=== PATIENT | female | born 1950 | race Caucasian/White ===

== ENCOUNTER 2018-10-11 10:00 | Emergency (ER) | payer BC ==
[2018-10-11 10:32] VITALS: TEMP 97.9
[2018-10-11] MEDS ORDERED: SODIUM CHLORIDE 0.9% 1,000 ML IV STA (11:01)
--- NOTE | 2018-10-11 11:25 | ED ---
General Adult HPI - General Chief complaint: Vaginal Bleeding Stated complaint: vaginal bleeding/dizziness Time Seen by Provider: 10/11/18 10:48 Source: patient, RN notes reviewed Mode of arrival: ambulatory Limitations: no limitations - History of Present Illness Initial comments: Patient is a 68-year-old female presenting to the emergency room with multiple complaints. Patient states that she has had some vaginal bleeding that started once again this morning. States she had an episode a few months ago. States it only lasted for a day. Patient does admit some cramping lower abdomen. States she woke up this morning with the bleeding. States it has slowed down. She states she is using a pad. Patient also admits that she's had a cough over the last 3 months. Denies any sputum production. Patient also admits to feeling lightheaded earlier today. She states she did take her insulin shot but did not eat anything. Patient omits that she also was constipated yesterday. Patient denies any other complaints at this time. Patient denies any recent fever, chills, shortness of breath, chest pain, back pain, numbness or tingling, dysuria or hematuria, headaches or visual changes, or any other complaints. - Related Data Allergies Allergy/AdvReac Type Severity Reaction Status Date / Time No Known Allergies Allergy Verified 10/11/18 10:32 Review of Systems ROS Statement: Those systems with pertinent positive or pertinent negative responses have been documented in the HPI. ROS Other: All systems not noted in ROS Statement are negative. Past Medical History Past Medical History: Diabetes Mellitus, Hypertension, Renal Disease, Thyroid Disorder History of Any Multi-Drug Resistant Organisms: MRSA Date of last positivie culture/infection: 2009 MDRO Source:: head Past Surgical History: Cholecystectomy, Tonsillectomy, Tubal Ligation Additional Past Surgical History / Comment(s): breast biopsy Past Psychological History: No Psychological Hx Reported Smoking Status: Never smoker Past Alcohol Use History: None Reported Past Drug Use History: None Reported General Exam - General Exam Comments Initial Comments: General: The patient is awake and alert, in no distress, and does not appear acutely ill. Eye: Pupils are equal, round and reactive to light. Extra-ocular movements are intact. No nystagmus. There is normal conjunctiva bilaterally. No signs of icterus. Ears, nose, mouth and throat: There are moist mucous membranes and no oral lesions. Neck: The neck is supple, there is no tenderness or JVD. Cardiovascular: There is a regular rate and rhythm. No murmur, rub or gallop is appreciated. Respiratory: Lungs are clear to auscultation, respirations are non-labored, breath sounds are equal. No wheezes, stridor, rales, or rhonchi. Gastrointestinal: Soft on palpation. Mild tenderness lower quadrants both left and right. No rebound, guarding or CVA tenderness. Musculoskeletal: Normal ROM, no tenderness. Sensation intact. Strength 5/5. Pulses equal bilaterally 2+. Neurological: A&O x 3. CN II-XII intact, There are no obvious motor or sensory deficits. Coordination appears grossly intact. Speech is normal. Skin: Skin is warm and dry and no rashes or lesions are noted. Psychiatric: Cooperative, appropriate mood & affect, normal judgment. Limitations: no limitations Course Vital Signs 10/11/18 10:27 Temperature 97.9 F Pulse Rate 86 Respiratory 18 Rate Blood Pressure 165/85 O2 Sat by Pulse 99 Oximetry EKG Findings - EKG Comments: EKG Findings:: EKG performed at 1150 two quarters normal sinus rhythm with a right bundle branch block at 75 bpm. VA interval 140. 138 QT/QTc is 454/506. No acute ST change. Medical Decision Making - Medical Decision Making Ultrasound shows marked heterogeneous thickening of the endometrial stripe seen better on the transabdominal investigation, differential includes hyperplasia, polyp or carcinoma. Patient's labs been reviewed hemoglobin stable. Patient's urinalysis does have tenderness or chills. Patient is symptomatic. Culture pending. Patient at this time is resting comfortably doing well. Patient will be discharged home she is advised following up with [facility] [facility] for the vaginal bleeding has all shown shows a thickened endometrium. Patient advised to return to the emergency room symptoms increase worsen. Advised follow family doctor over the next 2 days - Lab Data Result diagrams: 10/11/18 11:45 10/11/18 11:45 Lab Results 10/11/18 10/11/18 10/11/18 Range/Units 11:45 11:45 11:45 WBC 9.3 (3.8-10.6) k/uL RBC 5.43 H (3.80-5.40) m/uL Hgb 16.2 H (11.4-16.0) gm/dL Hct 47.9 H (34.0-46.0) % MCV 88.3 (80.0-100.0) fL MCH 29.8 (25.0-35.0) pg MCHC 33.8 (31.0-37.0) g/dL RDW 12.7 (11.5-15.5) % Plt Count 236 (150-450) k/uL Neutrophils % 69 % Lymphocytes % 21 % Monocytes % 7 % Eosinophils % 3 % Basophils % 0 % Neutrophils # 6.4 (1.3-7.7) k/uL Lymphocytes # 1.9 (1.0-4.8) k/uL Monocytes # 0.6 (0-1.0) k/uL Eosinophils # 0.3 (0-0.7) k/uL Basophils # 0.0 (0-0.2) k/uL PT 10.7 (9.0-12.0) sec INR 1.1 (<1.2) APTT 22.7 (22.0-30.0) sec Sodium 138 (137-145) mmol/L Potassium 4.3 (3.5-5.1) mmol/L Chloride 106 (98-107) mmol/L Carbon Dioxide 25 (22-30) mmol/L Anion Gap 7 mmol/L BUN 15 (7-17) mg/dL Creatinine 0.57 (0.52-1.04) mg/dL Est GFR (CKD-EPI)AfAm >90 (>60 ml/min/1.73 sqM) Est GFR (CKD-EPI)NonAf >90 (>60 ml/min/1.73 sqM) Glucose 185 H (74-99) mg/dL Calcium 9.5 (8.4-10.2) mg/dL Total Bilirubin 0.5 (0.2-1.3) mg/dL AST 30 (14-36) U/L ALT 41 (9-52) U/L Alkaline Phosphatase 63 (38-126) U/L Troponin I (0.000-0.034) ng/mL Total Protein 7.0 (6.3-8.2) g/dL Albumin 3.6 (3.5-5.0) g/dL Urine Color Urine Appearance (Clear) Urine pH (5.0-8.0) Ur Specific [place] (1.001-1.035) Urine Protein (Negative) Urine Glucose (UA) (Negative) Urine Ketones (Negative) Urine Blood (Negative) Urine Nitrite (Negative) Urine Bilirubin (Negative) Urine Urobilinogen (<2.0) mg/dL Ur Leukocyte Esterase (Negative) Urine RBC (0-5) /hpf Urine WBC (0-5) /hpf Ur Squamous Epith Cells (0-4) /hpf Urine Bacteria (None) /hpf Urine Mucus (None) /hpf 10/11/18 10/11/18 Range/Units 11:45 14:10 WBC (3.8-10.6) k/uL RBC (3.80-5.40) m/uL Hgb (11.4-16.0) gm/dL Hct (34.0-46.0) % MCV (80.0-100.0) fL MCH (25.0-35.0) pg MCHC (31.0-37.0) g/dL RDW (11.5-15.5) % Plt Count (150-450) k/uL Neutrophils % % Lymphocytes % % Monocytes % % Eosinophils % % Basophils % % Neutrophils # (1.3-7.7) k/uL Lymphocytes # (1.0-4.8) k/uL Monocytes # (0-1.0) k/uL Eosinophils # (0-0.7) k/uL Basophils # (0-0.2) k/uL PT (9.0-12.0) sec INR (<1.2) APTT (22.0-30.0) sec Sodium (137-145) mmol/L Potassium (3.5-5.1) mmol/L Chloride (98-107) mmol/L Carbon Dioxide (22-30) mmol/L Anion Gap mmol/L BUN (7-17) mg/dL Creatinine (0.52-1.04) mg/dL Est GFR (CKD-EPI)AfAm (>60 ml/min/1.73 sqM) Est GFR (CKD-EPI)NonAf (>60 ml/min/1.73 sqM) Glucose (74-99) mg/dL Calcium (8.4-10.2) mg/dL Total Bilirubin (0.2-1.3) mg/dL AST (14-36) U/L ALT (9-52) U/L Alkaline Phosphatase (38-126) U/L Troponin I <0.012 (0.000-0.034) ng/mL Total Protein (6.3-8.2) g/dL Albumin (3.5-5.0) g/dL Urine Color Yellow Urine Appearance Clear (Clear) Urine pH 6.5 (5.0-8.0) Ur Specific [place] 1.006 (1.001-1.035) Urine Protein 1+ H (Negative) Urine Glucose (UA) Negative (Negative) Urine Ketones Negative (Negative) Urine Blood Large H (Negative) Urine Nitrite Negative (Negative) Urine Bilirubin Negative (Negative) Urine Urobilinogen <2.0 (<2.0) mg/dL Ur Leukocyte Esterase Small H (Negative) Urine RBC 20 H (0-5) /hpf Urine WBC 10 H (0-5) /hpf Ur Squamous Epith Cells <1 (0-4) /hpf Urine Bacteria Rare H (None) /hpf Urine Mucus Rare H (None) /hpf Disposition Clinical Impression: Vaginal bleeding Disposition: HOME SELF-CARE Condition: Good Instructions: Dysfunctional Uterine Bleeding (ED) Additional Instructions: Please use medication as discussed. Please follow-up with [facility]/family doctor in the next 2 days. Please return to emergency room if the symptoms increase or worsen or for any other concerns. Is patient prescribed a controlled substance at d/c from ED?: No Referrals: Cesar Thomas DO [Primary Care Provider] - 1-2 days Time of Disposition: 15:04
[2018-10-11 12:01] LABS: Basophils % (A) 0 %; Eosinophils # (A) 0.3 k/uL (0-0.7); Eosinophils % (A) 3 %; HCT 47.9 % (34.0-46.0); HGB 16.2 gm/dL (11.4-16.0); Lymphocytes # (A) 1.9 k/uL (1.0-4.8); Lymphocytes % (A) 21 %; MCH 29.8 pg (25.0-35.0); MCHC 33.8 g/dL (31.0-37.0); MCV 88.3 fL (80.0-100.0); Mean Platelet Volume 8.3; Monocytes # (A) 0.6 k/uL (0-1.0); Monocytes % (A) 7 %; Neutrophils # (A) 6.4 k/uL (1.3-7.7); Neutrophils % (A) 69 %; Platelet Count 236 k/uL (150-450); RBC 5.43 m/uL (3.80-5.40); RDW 12.7 % (11.5-15.5); WBC 9.3 k/uL (3.8-10.6)
[2018-10-11 12:10] LABS: ALT 41 U/L (9-52); AST 30 U/L (14-36); Albumin 3.6 g/dL (3.5-5.0); Alkaline Phosphatase 63 U/L (38-126); Anion Gap 7 mmol/L; Blood Urea Nitrogen 15 mg/dL (7-17); Calcium 9.5 mg/dL (8.4-10.2); Carbon Dioxide 25 mmol/L (22-30); Chloride 106 mmol/L (98-107); Glucose 185 mg/dL (74-99); Potassium 4.3 mmol/L (3.5-5.1); Sodium 138 mmol/L (137-145); Total Bilirubin 0.5 mg/dL (0.2-1.3)
[2018-10-11 12:19] LABS: INR 1.1 (<1.2); Partial Thromboplastin Time 22.7 sec (22.0-30.0); Prothrombin Time 10.7 sec (9.0-12.0)
--- NOTE | 2018-10-11 13:05 | XR ---
EXAMINATION TYPE: XR chest 2V DATE OF EXAM: 10/11/2018 COMPARISON: Prior chest x-ray April 13, 2011 HISTORY: Cough per order. TECHNIQUE: Frontal and lateral views of the chest are obtained. FINDINGS: There is no focal air space opacity, pleural effusion, or pneumothorax seen. The cardiac silhouette size is within normal limits. Multilevel spurring in the lower thoracic spine is present. IMPRESSION: No acute cardiopulmonary process.
--- NOTE | 2018-10-11 13:52 | US ---
EXAMINATION TYPE: US pelvis complete transvag DATE OF EXAM: 10/11/2018 COMPARISON: NONE CLINICAL HISTORY: bleeding. Postmenopausal bleeding TECHNIQUE: . Transabdominal sonographic images of the pelvis were acquired. Transvaginal sonographi c images were medically necessary to better assess the following anatomy: Uterus and endometrium Date of LMP: Age 42 EXAM MEASUREMENTS: Uterus: 10.7 x 5.1 x 6.2 cm Endometrial Stripe: 2.4 cm Right Ovary: Not visualized Left Ovary: Not visualized 1. Uterus: Anteverted 2. Endometrium: Thickened and heterogeneous. 3. Right Ovary: Obscured by overlying bowel gas 4. Left Ovary: Obscured by overlying bowel gas 5. Bilateral Adnexa: wnl as visualized 6. Posterior cul-de-sac: wnl as visualized IMPRESSION: Marked heterogeneous thickening of the endometrial stripe seen better on transabdominal i nvestigation, differential includes hyperplasia and polyp but carcinoma needs to BE considered given patient's history. Further investigation with endometrial sampling is advised.
[2018-10-11 14:35] LABS: Appearance,Urine Clear (Clear); Bacteria,Urine Rare /hpf; Bilirubin,Urine Negative (Negative); Blood,Urine Large (Negative); Color,Urine Yellow; Glucose,Urine (UA) Negative (Negative); Ketones,Urine Negative (Negative); Leukocyte Esterase,Urine Small (Negative); Mucus,Urine Rare /hpf; Nitrite,Urine Negative (Negative); PH, Urine 6.5 (5.0-8.0); Protein,Urine 1+ (Negative); RBC,Urine 20 /hpf (0-5); Specific Gravity,Urine 1.006 (1.001-1.035); Squamous Epithelial Cell,Urine <1 /hpf (0-4); Urobilinogen,Urine <2.0 mg/dL (<2.0)
[2018-10-11 15:15] VITALS: BP 149/73; PULSE 68; RESP 19
== END 2018-10-11 16:02 | disposition home or self-care (01) ==
LOC: EC 10:00
DX: N93.9 Abnormal uterine and vaginal bleeding, unspecified (principal); R93.89 Abnormal findings on diagnostic imaging of other specified body structures; R10.30 Lower abdominal pain, unspecified; R05 Cough; R42 Dizziness and giddiness; E11.9 Type 2 diabetes mellitus without complications; Z79.4 Long term (current) use of insulin; Z86.14 Personal history of Methicillin resistant Staphylococcus aureus infection; Z90.49 Acquired absence of other specified parts of digestive tract; Z98.51 Tubal ligation status; Z90.89 Acquired absence of other organs
CPT/HCPCS: 36415; 71046; 76830; 76856; 80053; 81001; 83036; 84484; 85025; 85610; 85730; 87086; 93005; 96360; 96361; 99284

== ENCOUNTER → 2018-12-16 | Outpatient (CLI) | payer MEDICARE ==
[2018-12-16 16:20] LABS: MCHC 33.4 g/dL (31.0-37.0); MCV 89.7 fL (80.0-100.0); Mean Platelet Volume 7.8; Platelet Count 294 k/uL (150-450); RBC 5.36 m/uL (3.80-5.40); WBC 9.1 k/uL (3.8-10.6)
[2018-12-16 16:24] LABS: Anion Gap 9 mmol/L; Blood Urea Nitrogen 21 mg/dL (7-17); Carbon Dioxide 28 mmol/L (22-30); Chloride 99 mmol/L (98-107); Potassium 4.9 mmol/L (3.5-5.1); Sodium 136 mmol/L (137-145)
== END | disposition home or self-care (01) ==
LOC: LABPAT 15:48
PROVIDERS: ATTEND Internal Medicine Interventional Cardiology
DX: Z01.812 Encounter for preprocedural laboratory examination (principal); I10 Essential (primary) hypertension; E78.2 Mixed hyperlipidemia; R94.39 Abnormal result of other cardiovascular function study
CPT/HCPCS: 36415; 80051; 82565; 84520; 85027

== ENCOUNTER 2018-12-30 07:54 | Day surgery (SDC) | payer MEDICARE ==
[2018-12-29 08:49] VITALS: BMI 39.4
[~2018-12-30 07:54] MED LIST: ALPRAZolam 0.25 MG TAB PO PRN; ALPRAZolam 0.5 MG TAB PO PRN; ASPIRIN 325 MG TAB PO STA; ATORVASTATIN 80 MG TAB PO STA; NITROGLYCERIN SL TABS 0.4 MG TAB SUBLINGUAL PRN; SODIUM CHLORIDE 0.9% 1,000 ML in EMPTY BAG 1 BAG IV ONE
[2018-12-30] MEDS ORDERED: SODIUM CHLORIDE 0.9% 1,000 ML IV ONE (08:07)
[2018-12-30 08:32] LABS: Glucose,Whole Blood 289 mg/dL (75-99)
[2018-12-30] MEDS: INSULIN ASPART (NovoLOG) 100 UNIT/ML VIAL SQ SCH ×3 (08:33→21:35)
[2018-12-30] MEDS ORDERED: VERAPAMIL 2.5 MG/ML 2 ML AMP ONE (08:54)
[2018-12-30] MEDS ORDERED: LIDOCAINE 1% INJ 10MG/ML (20 ML MDV) ONE (08:54)
[2018-12-30] MEDS ORDERED: HEPARIN SODIUM 1,000 UN/ML (10ML VL) ONE (08:55)
[2018-12-30] MEDS ORDERED: fentaNYL (PF) 50 MCG/ML 2 ML AMP ONE (08:55)
[2018-12-30] MEDS ORDERED: fentaNYL (PF) 50 MCG/ML 2 ML AMP IV ONE (09:21)
[2018-12-30] MEDS ORDERED: LIDOCAINE 1% INJ 10MG/ML (20 ML MDV) SQ ONE (09:27)
[2018-12-30] MEDS ORDERED: VERAPAMIL SYRINGE (5 MG/10 ML) INTRAARTER ONE (09:30)
[2018-12-30] MEDS ORDERED: CLOPIDOGREL 75 MG TAB ONE (09:41)
[2018-12-30] MEDS ORDERED: CLOPIDOGREL 75 MG TAB PO ONE (09:44)
[2018-12-30] MEDS ORDERED: BIVALIRUDIN BOLUS 250 MG/50 ML IV ONE (09:44)
[2018-12-30] MEDS ORDERED: BIVALIRUDIN 250 MG in SODIUM CHLORIDE 0.9% 50 ML IV ONE ×2 (09:45→10:21)
[2018-12-30] MEDS ORDERED: IOPAMIDOL-370 100ML BTL INJ ONE ×3 (09:48→10:40)
[2018-12-30] MEDS ORDERED: HYDROmorphone 2 MG/ML 1 ML SYRINGE IVP ONE (09:58)
[2018-12-30] MEDS ORDERED: ONDANSETRON 4 MG/2 ML VIAL IVP ONE (10:00)
[2018-12-30] MEDS ORDERED: ONDANSETRON 4 MG/2 ML VIAL ONE (10:01)
[2018-12-30] MEDS ORDERED: NITROGLYCERIN 1000MCG/10ML SYRINGE INTRACORON ONE (10:11)
[2018-12-30] MEDS ORDERED: RX INFO: IV CONTRAST WAS GIVEN 1 EACH MISC MISCELLANE PRN (11:01)
[2018-12-30 11:04] LABS: Glucose,Whole Blood 267 mg/dL (75-99)
--- NOTE | 2018-12-30 11:12 | CC ---
CARDIAC CATHETERIZATION REPORT Mrs. Cooley is a 68-year-old female with known history of hypertension, hyperlipidemia, diabetes mellitus, who has been complaining of dyspnea, has underwent stress test that revealed evidence of inducible ischemia. In view of that, recommendation made regarding cardiac catheterization. The procedure, risks and complications were discussed with the patient who is in full understanding and agreement. PROCEDURE: Patient was brought to the physical laboratory assistant in a fasting semi-sedated state after receiving fentanyl and Benadryl and achieving moderate conscious sedated state. Using Xylocaine anesthesia and Seldinger technique, a 6-Bahamian sheath was introduced in the right radial artery. Selective right and left angiography was performed using 5-Bahamian 3.5 bend right and left Martir catheters, multiple views of the coronary artery including hemiaxial views obtained. Following that, angioplasty and stenting was performed. Following that, 5-Bahamian tight pigtail catheter was introduced in the left ventricle and a 30 degree CORBIN view of the left ventricle was obtained. Following that, catheter and sheaths were removed. Hemostasis was obtained with deployment of TR band. There was no immediate complication. Patient is returned to her room in stable condition. Of note, the patient received intra-arterial verapamil. FINDINGS: FLUOROSCOPY: There is calcification involving all the coronary arteries. LEFT MAIN: This is a large-sized vessel bifurcating into left circumflex, left anterior descending artery, left main coronary artery has no evidence of high-grade stenosis. LEFT ANTERIOR DESCENDING ARTERY: This is a large-sized vessel reaching to the apex, tapers down distal third, giving rise to 2 diagonal branches, the vessel is calcified proximally. It has at takeoff of the first septal perforators, 20% to 30% plaque. The rest of the vessel has no high-grade stenosis. The first obtuse marginal branch is small in caliber and has a 50% to 60% plaque proximally. LEFT CIRCUMFLEX: This is a large nondominant vessel, giving rise to 2 obtuse marginal branches, the first one is larger in caliber. The second obtuse marginal branch has a long area of stenosis up to 99%. The rest of the vessel has no high-grade stenosis. RIGHT CORONARY ARTERY: This is a dominant vessel, large in caliber, bifurcating into PDA and posterolateral segment branches, is calcified, has a 90% stenosis in the mid segment. The rest of the vessel has no high-grade stenosis. LEFT VENTRICULOGRAM: Left ventriculogram is performed in 30 degree CORBIN view and revealed normal left ventricular size and systolic function. Ejection fraction is 60%. There was no significant mitral regurgitation. HEMODYNAMICS: There was no gradient across the aortic valve. The left ventricular end- diastolic pressure was 18-20 mmHg. CONCLUSION: 1. Calcified coronary arteries. 2. Critical stenosis involving the second obtuse marginal branch. 3. Significant stenosis involving the mid right coronary artery. 4. Normal left ventricular size systolic function. RECOMMENDATION: In view of finding anatomy, I recommend proceeding with angioplasty and stenting of the right coronary artery, left circumflex. The procedures, risks and complication were discussed with the patient who is in full understanding and agreement. MMODL / IJN: [id number] /
[2018-12-30] MEDS ORDERED: SODIUM CHLORIDE 0.9% 1,000 ML IV SCH (11:15)
--- NOTE | 2018-12-30 11:27 | PTCA ---
PERCUTANEOUSTRANS CORORONARY ANGIOGRAPHY Ms. Cooley is a 68-year-old female with known history of hypertension, hyperlipidemia, diabetes mellitus, who recently had an abnormal myocardial perfusion imaging, underwent cardiac catheterization, was found to have calcified coronary arteries with significant obstructive disease involving the right coronary artery and the left circumflex, second obtuse marginal branch. In view of that, recommendation regarding angioplasty and stenting. The procedures, risks and complication were discussed with the patient who is in full understanding and agreement. PROCEDURE: A 6-Arabic FR4 guiding catheter introduced into the system. After cannulating the right coronary ostium, a 0.014 balanced medium weight J-wire was advanced across the lesion, positioned distal RCA. Following that, a 2.5 x 12 mm Trek balloon was advanced, one inflation at 10 atmospheres was done. Following that, the balloon was removed and a 2.5 x 18 mm Xience Machelle stent was deployed, post dilated at 16 atmospheres. Following that, the balloon was removed and a 2.75 x 12 mm NC Trek balloon was advanced and one inflation at 14 atmospheres was done. Following that, the balloon and the guidewire were withdrawn back in the guiding catheter. Images were obtained and repeated. Those images reveal stable successful stenting. At that point, the guiding catheter, the balloon and the guidewire were removed and a 6-Arabic FL 3.5 guiding catheter introduced into the system. After cannulating the left main, a 0.014 balanced medium weight J-wire was advanced into the system and positioned in the distal second obtuse marginal branch. Following that, another 0.014 whisper J was advanced next to the first wire in a delroy fashion and positioned distally. Following that, a 2.0 x 12 mm Trek balloon was advanced and multiple inflations at 10 atmospheres were done. Following that, the balloon was removed and attempt to advance a 2.0 x 26 mm and a 2.0 x 18 mm Jacob Resolute stent were unsuccessful. Those stents were removed and the whisper wire was removed and a GuideLiner was introduced and with the help of the GuideLiner, the 2.0 x 26 mm Jacob Resolute was deployed distally and postdilated 16 atmospheres and after removing the balloon, the 2.5 x 18 mm [place] Resolute stent was deployed proximal to the first one, postdilated to 16 atmospheres. After the last inflation, after appropriate wait, the balloon and the guidewire were withdrawn back in the guiding catheter. Images were obtained and repeated. Those images reveal stable successful stenting. At that point, the guiding catheter, the balloon and the guidewire were removed and a left ventriculogram was performed. Following that, catheter and sheath were removed. Hemostasis was obtained with deployment of a TR band. There was no complication. Patient is returned to her room in stable condition. Of note, the patient had chest discomfort with the inflation on the RCA. She received Angiomax per protocol as well as oral loading dose of clopidogrel. RESULTS: 1. Successful stenting of the mid right coronary artery with reduction of stenosis from 90% to 0%. 2. Successful stenting of the second obtuse marginal branch with reduction of stenosis in a long segment of 99% to 0%. RECOMMENDATION: Patient be continued on aspirin, Plavix and statin. The importance of dual antiplatelet treatment were discussed with the patient and her family, who are in full understanding and agreement. Duration of the procedure is 18 minutes. MMSHUBHAML / EMPERATRIZN: [id number] /
--- NOTE | 2018-12-30 11:33 | LTR ---
DATE OF SERVICE: 12/30/2018 RE: Sofia Cooley Dear Dr. Thomas: I had the pleasure to perform cardiac catheterization on Mrs. Cooley at [facility] on December 30, 2018 and a full copy of the procedure note will be forwarded to you. In brief, she was found to have critical stenosis involving the mid-right coronary artery as well as the second obtuse marginal branch, underwent stenting of both vessels using drug-eluting stent. I am hoping this procedure will stabilized her status and thank you again for allowing me to participate in this patient's personal care. Please feel free to call for any questions. Sincerely yours, Hunter Alfonso MD [id number] / EMPERATRIZN: [id number] /
[2018-12-30] MEDS ORDERED: ACETAMINOPHEN TAB 325 MG TAB ONE (11:34)
[2018-12-30 16:40] LABS: Glucose,Whole Blood 271 mg/dL (75-99)
[2018-12-30 20:24] VITALS: RESP 18
[2018-12-30] MEDS ORDERED: INSULIN DETEMIR (LEVEMIR) 100 UNIT/ML SYR SQ SCH (21:00)
[2018-12-30] MEDS ORDERED: ATORVASTATIN 40 MG TAB PO SCH (21:00)
[2018-12-30 21:25] LABS: Glucose,Whole Blood 306 mg/dL (75-99)
[2018-12-31 06:08] LABS: Glucose,Whole Blood 282 mg/dL (75-99)
[2018-12-31 06:25] LABS: Anion Gap 4 mmol/L; Blood Urea Nitrogen 17 mg/dL (7-17); Carbon Dioxide 28 mmol/L (22-30); Chloride 104 mmol/L (98-107); Glucose 278 mg/dL (74-99); Potassium 4.2 mmol/L (3.5-5.1); Sodium 136 mmol/L (137-145)
[2018-12-31] MEDS ORDERED: LEVOTHYROXINE 88 MCG TAB PO SCH (06:30)
[2018-12-31] MEDS: INSULIN ASPART (NovoLOG) 100 UNIT/ML VIAL SQ SCH (07:22)
[2018-12-31] MEDS ORDERED: INSULIN ASPART (NovoLOG) 100 UNIT/ML VIAL SQ SCH (07:30)
[2018-12-31 07:58] VITALS: BP 145/66; PULSE 88; TEMP 97.2
[2018-12-31] MEDS ORDERED: ASPIRIN 81 MG PO SCH (09:00)
[2018-12-31] MEDS ORDERED: amLODIPine 5 MG TAB PO SCH (09:00)
[2018-12-31] MEDS ORDERED: LISINOPRIL 10 MG TAB PO SCH (09:00)
[2018-12-31] MEDS ORDERED: HYDROCHLOROTHIAZIDE 25 MG TAB PO SCH (09:00)
[2018-12-31] MEDS ORDERED: CLOPIDOGREL 75 MG TAB PO SCH (09:00)
[2018-12-31] MEDS ORDERED: ACETAMINOPHEN TAB 500 MG TAB PO PRN (09:39)
--- NOTE | 2018-12-31 11:04 | PN ---
PROGRESS NOTE Mrs. Cooley is a 68-year-old female who had an abnormal myocardial perfusion imaging, underwent cardiac catheterization and stenting of the left circumflex and the RCA yesterday. She is feeling well today, ambulating without difficulty. Denying any chest pain. No dizziness. No palpitation. She continued to be on aspirin once a day, amlodipine 5 mg daily, Lipitor 40 mg daily, hydrochlorothiazide 25 mg daily, lisinopril 10 mg daily, Plavix 75 mg daily, and lisinopril 10 mg daily. PHYSICAL EXAMINATION: Blood pressure 145/60 with the heart rate in the 80s. LUNGS: Clear. HEART: Regular rate and rhythm. S1, S2. No S3. No rub. ABDOMEN: Soft, nontender. EXTREMITIES: No edema. Right radial pulse intact. LAB DATA: Lab data revealed BUN creatinine 17 and 0.63, potassium 4.2. IMPRESSION: 1. Status post stenting of the left circumflex and the right coronary artery. 2. Hypertension. 3. Hyperlipidemia. RECOMMENDATION: She should be able to be discharged home today and followed as an outpatient in 1 week. MMODL / IJN: [id number] /
== END 2018-12-31 11:45 | disposition home or self-care (01) ==
LOC: CATHCVL 07:54 → 3SCARD 10:40 → CATHCVL 12-31 11:45
PROVIDERS: ATTEND Internal Medicine Interventional Cardiology
DX: I25.10 Atherosclerotic heart disease of native coronary artery without angina pectoris (principal); I25.84 Coronary atherosclerosis due to calcified coronary lesion; I10 Essential (primary) hypertension; E11.9 Type 2 diabetes mellitus without complications; E78.5 Hyperlipidemia, unspecified; Z79.82 Long term (current) use of aspirin; Z79.890 Hormone replacement therapy; Z79.4 Long term (current) use of insulin; Z79.899 Other long term (current) drug therapy
CPT/HCPCS: 93458; 85347; 80048; C9600 ×2; C1769 ×2; C1887 ×3; C1725 ×3; C1874 ×2; J1170; J2405; J2001; J3010; J0583; Q9967

== ENCOUNTER 2019-01-05 04:07 | Observation (INO) | payer MEDICARE ==
[2019-01-05 04:21] VITALS: RESP 18
[2019-01-05] MEDS ORDERED: ASPIRIN 81 MG PO STA (04:23)
[2019-01-05 04:49] LABS: Basophils # (A) 0.1 k/uL (0-0.2); Basophils % (A) 1 %; Eosinophils # (A) 0.5 k/uL (0-0.7); Eosinophils % (A) 5 %; HCT 49.9 % (34.0-46.0); Lymphocytes # (A) 2.4 k/uL (1.0-4.8); Lymphocytes % (A) 25 %; MCH 28.7 pg (25.0-35.0); MCV 89.7 fL (80.0-100.0); Mean Platelet Volume 7.6; Monocytes # (A) 0.6 k/uL (0-1.0); Monocytes % (A) 7 %; Neutrophils # (A) 5.9 k/uL (1.3-7.7); Neutrophils % (A) 62 %; Platelet Count 272 k/uL (150-450); RBC 5.56 m/uL (3.80-5.40); RDW 13.1 % (11.5-15.5); WBC 9.5 k/uL (3.8-10.6)
--- NOTE | 2019-01-05 04:54 | XR ---
EXAM: XR Chest, 2 Views CLINICAL HISTORY: Chest Pain TECHNIQUE: Frontal and lateral views of the chest. COMPARISON: October 11, 2018. FINDINGS: Lungs: Unremarkable. No consolidation. Pleural space: Unremarkable. No pleural effusions. No pneumothorax. Heart: Unremarkable. No cardiomegaly. Mediastinum: Unremarkable. Bones/joints: Unremarkable. IMPRESSION: No acute cardiopulmonary process.
[2019-01-05 04:57] LABS: INR 0.9 (<1.2); Partial Thromboplastin Time 22.4 sec (22.0-30.0)
[2019-01-05 04:58] LABS: Albumin 3.8 g/dL (3.5-5.0); Anion Gap 9 mmol/L; Blood Urea Nitrogen 21 mg/dL (7-17); Calcium 10.3 mg/dL (8.4-10.2); Carbon Dioxide 26 mmol/L (22-30); Chloride 98 mmol/L (98-107); Glucose 401 mg/dL (74-99); Sodium 133 mmol/L (137-145); Total Bilirubin 0.6 mg/dL (0.2-1.3); Total Protein 7.5 g/dL (6.3-8.2)
[2019-01-05 05:01] LABS: AST 27 U/L (14-36); Potassium 4.9 mmol/L (3.5-5.1)
[2019-01-05 05:02] LABS: ALT 35 U/L (9-52); Alkaline Phosphatase 78 U/L (38-126); Magnesium 1.8 mg/dL (1.6-2.3)
[2019-01-05 05:05] LABS: Prothrombin Time 9.6 sec (9.0-12.0)
[2019-01-05] MEDS ORDERED: INSULIN REGULAR 100 UNIT/ML VIAL SQ ONE ×2 (05:10→05:45)
[2019-01-05 05:24] LABS: Creatine Kinase MB 1.5 ng/mL (0.0-2.4)
[2019-01-05 05:27] LABS: Troponin I 0.038 ng/mL (0.000-0.034)
--- NOTE | 2019-01-05 05:28 | ED ---
Chest Pain HPI - General Chief Complaint: Chest Pain Stated Complaint: chest pain Time Seen by Provider: 01/05/19 04:23 Source: patient Mode of arrival: ambulatory Limitations: no limitations - History of Present Illness Initial Comments: Domenico is a pleasant 68-year-old female with history of diabetes and known coronary artery disease for which she underwent elective cardiac catheterization and stenting on December 30. Patient reports that after the procedure she was experiencing what she described as some aching in her chest and her right shoulder all the way down to her right hand. Patient thought that this was normal and the postprocedure setting. She was discharged home. Patient reports she's been taking Tylenol intermittently since discharge which improves the discomfort in her right arm to her right shoulder. Despite being compliant with her aspirin and Plavix as well as all her other home medication she reports she's had continued aching like chest pain. She denies any shortness breath diaphoresis or lightheadedness. Patient's reports that around 3:00 this morning she was crying in pain at which time he decided - Related Data Home Medications Medication Instructions Recorded Confirmed Aspirin 81 mg PO DAILY 12/29/18 12/30/18 Hydrochlorothiazide [Hydrodiuril] 25 mg PO DAILY 12/29/18 12/30/18 Insulin Aspart [NovoLOG] 20 units SQ W/BRKFST 12/29/18 12/30/18 Insulin Glargine [Lantus] 50 unit SQ HS 12/29/18 12/30/18 Levothyroxine Sodium [Synthroid] 88 mcg PO DAILY 12/29/18 12/30/18 amLODIPine BESYLATE/BENAZEPRIL 1 cap PO DAILY 12/29/18 12/30/18 [Lotrel 5-10 MG] Previous Rx's Medication Instructions Recorded Atorvastatin Calcium [Lipitor] 40 mg PO HS #90 tablet 12/31/18 Clopidogrel [Plavix] 75 mg PO DAILY #90 tab 12/31/18 Nitroglycerin Sl Tabs [Nitrostat] 0.4 mg SUBLINGUAL Q5M PRN #25 tab 12/31/18 Allergies Allergy/AdvReac Type Severity Reaction Status Date / Time latex Allergy Itching Verified 01/05/19 04:18 Review of Systems ROS Statement: Those systems with pertinent positive or pertinent negative responses have been documented in the HPI. ROS Other: All systems not noted in ROS Statement are negative. Past Medical History Past Medical History: Diabetes Mellitus, Eye Disorder, Hypertension, Thyroid Disorder Additional Past Medical History / Comment(s): increased fatigue with activity, increased SOB,recent post menopausal bleeding,uterus firmness,retinitis and cataracts joao eyes,varicose veins History of Any Multi-Drug Resistant Organisms: MRSA Date of last positivie culture/infection: 2009 MDRO Source:: head Past Surgical History: Cholecystectomy, Heart Catheterization With Stent, Tonsillectomy, Tubal Ligation Additional Past Surgical History / Comment(s): breast biopsy Past Anesthesia/Blood Transfusion Reactions: No Reported Reaction Additional Past Anesthesia/Blood Transfusion Reaction / Comment(s): no hx blood transfusion Past Psychological History: Depression Smoking Status: Never smoker Past Alcohol Use History: None Reported Past Drug Use History: None Reported - Past Family History Sister(s) Family Medical History: Cancer Mother Additional Family Medical History / Comment(s): pulmonary edema General Exam - General Exam Comments Initial Comments: Physical Exam GENERAL: Patient is well-developed and well-nourished. Patient is nontoxic and well- hydrated and is in no distress. HENT: Normocephalic, Atraumatic. EYES: PERRL, EOMI PULMONARY: Unlabored respirations. No audible rales rhonchi or wheezing was noted. CARDIOVASCULAR: There is a regular rate and rhythm without any murmurs gallops or rubs. And well-perfused extremities, well-healing bruise on the right wrist consistent with recent vascular access for cardiac cath ABDOMEN: Soft and nontender with normal bowel sounds. SKIN: Skin is clear with no lesions or rashes and otherwise unremarkable. : Deferred NEUROLOGIC: Patient is alert and oriented x3. Moving all extremities spontaneously MUSCULOSKELETAL: Normal extremities with adequate strength and full range of motion. No lower extremity swelling or edema. No calf tenderness. PSYCHIATRIC: Normal psychiatric evaluation. 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 They did attempt to contact cardiology yesterday but were unable to get through the office. This morning patient will be 3 AM crying in pain at which time her brought her to the ER for evaluation and sent EKG shows sinus rhythm rate of 81 there is a bifascicular block when compared to previous EKG there is no significant change in morphology from previous which was obtained in 2018. Neck workup was ordered Chest x-ray unremarkable Labs resulted with a critical glucose of 400, insulin was ordered patient states that for this level she would take 20 units of insulin Troponin was mildly elevated 0.038 given the patient's persistent pain after her cardiac catheter do feel she warrants further observation and evaluation by cardiology Admission orders were placed That the cardiology was placed Disposition Clinical Impression: Chest pain Disposition: ADMITTED IP TO THIS HOSP Condition: Stable
[2019-01-05 07:20] LABS: Glucose,Whole Blood 350 mg/dL (75-99)
[2019-01-05 11:56] LABS: Troponin I 0.023 ng/mL (0.000-0.034)
[2019-01-05] MEDS ORDERED: NITROGLYCERIN SL TABS 0.4 MG TAB SUBLINGUAL PRN (12:05)
[2019-01-05] MEDS ORDERED: AZITHROMYCIN 500 MG TAB PO SCH (12:15)
--- NOTE | 2019-01-05 12:15 | P.CONS ---
History of Present Illness - History of Present Illness This is a pleasant 68 years old female with past medical history of diabetes mellitus, hypertension, hyperthyroidism coronary artery disease status post cardiac cath. Presents because of right forearm pain of 6 days' duration that is gradually getting worse about 7/10 in severity, felt like achy and constant. Radiating up to the shoulder, associated with movement. Also patient has been secured by her cat on the lateral side of her right second finger there is no surrounding cellulitis or erythema. Patient states that her arm pain was present before the CAT scan crashed her, but it wasn't sure if it's Worse by the scratch. She has some fullness in the proximal right forearm, however there is no fluctuating mass. Patient denies fever. No chest pain or dyspnea. No coughing. No abdominal pain or change in urine or bowel habits. No dizziness. On admission vitals stable. CBC was unremarkable, sodium 133, rest of BMP was unremarkable. Glucose was high at 350. Troponins were elevated at 0.03. An 0.02. Magnesium 1.8. Liver enzymes were unremarkable.EKG: Normal sinus rhythm at 81. In the emergency room patient got aspirin and insulin. Now we can tobacco prizer, and there is radial pulses symmetrical on both sides Review of Systems CONSTITUTIONAL: No fever, no malaise, no fatigue. HEENT: No recent visual problems or hearing problems. Denied any sore throat. CARDIOVASCULAR: No orthopnea, PND, no palpitations, no syncope. PULMONARY: No shortness of breath, no cough, no hemoptysis. GASTROINTESTINAL: No diarrhea, no nausea, no vomiting, no abdominal pain. Normoactive bowel sounds. NEUROLOGICAL: No headaches, no weakness, no numbness. HEMATOLOGICAL: Denies any bleeding or petechiae. GENITOURINARY: Denies any burning micturition, frequency, or urgency. MUSCULOSKELETAL/RHEUMATOLOGICAL: Denies any joint pain, swelling, or any muscle pain. ENDOCRINE: Denies any polyuria or polydipsia. Past Medical History Past Medical History: Diabetes Mellitus, Eye Disorder, Hypertension, Thyroid Disorder Additional Past Medical History / Comment(s): increased fatigue with activity, increased SOB,recent post menopausal bleeding,uterus firmness,retinitis and cataracts joao eyes,varicose veins History of Any Multi-Drug Resistant Organisms: MRSA Year Discovered:: 2009 MDRO Source:: head Past Surgical History: Cholecystectomy, Heart Catheterization With Stent, Tonsillectomy, Tubal Ligation Additional Past Surgical History / Comment(s): breast biopsy Past Anesthesia/Blood Transfusion Reactions: No Reported Reaction Additional Past Anesthesia/Blood Transfusion Reaction / Comm: no hx blood transfusion Past Psychological History: Depression Smoking Status: Never smoker Past Alcohol Use History: None Reported Past Drug Use History: None Reported - Past Family History Sister(s) Family Medical History: Cancer Mother Additional Family Medical History / Comment(s): pulmonary edema Medications and Allergies Home Medications Medication Instructions Recorded Confirmed Type Aspirin 81 mg PO DAILY 12/29/18 01/05/19 History Hydrochlorothiazide [Hydrodiuril] 25 mg PO HS 12/29/18 01/05/19 History Insulin Aspart [NovoLOG] 20 units SQ W/BRKFST 12/29/18 01/05/19 History Insulin Glargine [Lantus] 50 unit SQ HS 12/29/18 01/05/19 History Levothyroxine Sodium [Synthroid] 88 mcg PO DAILY@0500 12/29/18 01/05/19 History amLODIPine BESYLATE/BENAZEPRIL 1 cap PO HS 12/29/18 01/05/19 History [Lotrel 5-10 MG] Atorvastatin Calcium [Lipitor] 40 mg PO HS #90 tablet 12/31/18 01/05/19 Rx Nitroglycerin Sl Tabs [Nitrostat] 0.4 mg SUBLINGUAL Q5M PRN #25 tab 12/31/18 Rx Clopidogrel [Plavix] 75 mg PO HS 01/05/19 01/05/19 History Allergies Allergy/AdvReac Type Severity Reaction Status Date / Time latex Allergy Itching Verified 01/05/19 07:11 Physical Exam Vitals: Vital Signs Temp Pulse Pulse Resp BP BP Pulse Ox 01/05/19 09:22 75 18 164/73 96 01/05/19 08:50 84 18 206/93 97 01/05/19 07:23 98.0 F 70 18 116/58 97 01/05/19 06:30 70 141/74 94 L 01/05/19 06:10 73 141/77 95 01/05/19 05:50 72 139/76 94 L 01/05/19 05:40 70 131/72 95 01/05/19 05:20 71 131/68 94 L 01/05/19 05:10 73 131/68 94 L 01/05/19 05:00 77 94 L 01/05/19 04:50 77 95 01/05/19 04:43 84 96 01/05/19 04:33 80 95 01/05/19 04:15 98.2 F 80 18 147/83 96 Intake and Output 01/04/19 01/05/19 01/05/19 22:59 06:59 14:59 Other: Weight 103.419 kg GENERAL: The patient is alert and oriented x3, not in any acute distress. Well developed, well nourished. HEENT: Pupils are round and equally reacting to light. EOMI. No scleral icterus. No conjunctival pallor. Normocephalic, atraumatic. No pharyngeal erythema. No thyromegaly. CARDIOVASCULAR: S1 and S2 present. No murmurs, rubs, or gallops. PULMONARY: Chest is clear to auscultation, no wheezing or crackles. ABDOMEN: Soft, nontender, nondistended, normoactive bowel sounds. No palpable organomegaly. MUSCULOSKELETAL: No joint swelling or deformity. EXTREMITIES: No cyanosis, clubbing, or pedal edema. NEUROLOGICAL: Gross neurological examination did not reveal any focal deficits. SKIN: No rashes. Results CBC & Chem 7: 01/05/19 04:34 01/05/19 04:34 Labs: Abnormal Lab Results - Last 24 Hours (Table) 01/05/19 01/05/19 01/05/19 Range/Units 04:34 04:34 04:34 RBC 5.56 H (3.80-5.40) m/uL Hct 49.9 H (34.0-46.0) % Sodium 133 L (137-145) mmol/L BUN 21 H (7-17) mg/dL Glucose 401 H (74-99) mg/dL POC Glucose (mg/dL) (75-99) mg/dL Calcium 10.3 H (8.4-10.2) mg/dL Troponin I 0.038 H* (0.000-0.034) ng/mL 01/05/19 Range/Units 07:18 RBC (3.80-5.40) m/uL Hct (34.0-46.0) % Sodium (137-145) mmol/L BUN (7-17) mg/dL Glucose (74-99) mg/dL POC Glucose (mg/dL) 350 H (75-99) mg/dL Calcium (8.4-10.2) mg/dL Troponin I (0.000-0.034) ng/mL Assessment and Plan Assessment: Right forearm pain, could be cardiac versus other Limited troponin, rule out acute coronary syndrome possible cat scratch disease Diabetes mellitus Essential hypertension Hyperlipidemia. Hypothyroidism Plan: This is a pleasant 68 years old female who presents because of right forearm pain and troponins. Cardiology consult continue with aspirin. Start Zithromax for possible transcatheter. Check ultrasound Doppler of the right upper extremity for DVT and soft tissue problem. Right elbow x-ray Labs and medication were reviewed.. Continue same treatment. Continue with symptomatic treatment. Resume home medication. Monitor lytes and vitals. DVT and GI prophylaxis. Further recommendations of the clinical course of the patient DVT prophylaxis: Subcutaneous heparin GI Prophylaxis: Pepcid PT/OT: Pending Prognosis is guarded
--- NOTE | 2019-01-05 12:50 | XR ---
EXAMINATION TYPE: XR elbow complete RT DATE OF EXAM: 01/05/2019 COMPARISON: None HISTORY: Proximal forearm pain TECHNIQUE: Three-view right elbow FINDINGS: No acute fractures are evident. Radius aligns normally with the humerus. Anterior fat pad i s normal. No elevation of posterior fat pad is evident. Soft tissues are unremarkable. Follow-up studies can be performed 7-10 days from acute trauma for continued pain. IMPRESSION: 1. Normal three-view right elbow
[2019-01-05 14:10] LABS: Glucose,Whole Blood 285 mg/dL (75-99)
--- NOTE | 2019-01-05 14:44 | US ---
EXAMINATION TYPE: US venous doppler duplex UE RT DATE OF EXAM: 01/05/2019 COMPARISON: NONE CLINICAL HISTORY: right forearm pain . SIDE PERFORMED: right Superficial and deep venous ultrasound is performed. This would include a radial veins cephalic vein basilic vein brachial vein axillary vein subclavian vein. Internal jugular vein is evaluated. [place] yevgeniy was utilized were possible. Color flow and Doppler sonography was performed. Right Arm: Negative for DVT IMPRESSION: 1. Right upper extremity negative for deep venous thrombosis.
--- NOTE | 2019-01-05 14:46 | US ---
EXAMINATION TYPE: US extremity nonvasc mass RT DATE OF EXAM: 01/05/2019 COMPARISON: NONE CLINICAL HISTORY: right forearm pain . Patient has palpable area in right forearm. At this area is an isoechoic ovoid structure showing no flow. Believed to be a lipoma. Oval circumscribed area of increased density at the palpable abnormality within the right forearm. A lipoma could be considered. Other etiologies are not excluded. Monitoring be recommended. IMPRESSION: 1. Possible lipoma forearm. Follow-up is recommended MTDD
[2019-01-05 16:59] LABS: Creatine Kinase MB 0.8 ng/mL (0.0-2.4); Troponin I 0.016 ng/mL (0.000-0.034)
[2019-01-05 18:56] VITALS: BMI 32.9
[2019-01-05] MEDS: HEPARIN SODIUM,PORCINE 5,000 UNIT/ML 1 ML VIAL SQ SCH (20:31)
[2019-01-05] MEDS: FAMOTIDINE 20 MG/2 ML VIAL IV SCH (20:32)
[2019-01-05] MEDS ORDERED: amLODIPine 5 MG TAB PO SCH (21:00)
[2019-01-05] MEDS ORDERED: BENAZEPRIL PO SCH (21:00)
[2019-01-05] MEDS ORDERED: LISINOPRIL 10 MG TAB PO SCH (21:00)
[2019-01-05] MEDS ORDERED: HYDROCHLOROTHIAZIDE 25 MG TAB PO SCH (21:00)
[2019-01-05] MEDS ORDERED: AMLODIPINE BESYLATE PO SCH (21:00)
[2019-01-05] MEDS ORDERED: INSULIN DETEMIR (LEVEMIR) 100 UNIT/ML SYR SQ SCH (21:00)
[2019-01-05] MEDS ORDERED: ATORVASTATIN 40 MG TAB PO SCH (21:00)
[2019-01-05] MEDS ORDERED: CLOPIDOGREL 75 MG TAB PO SCH (21:00)
[2019-01-05 21:18] LABS: Glucose,Whole Blood 343 mg/dL (75-99)
[2019-01-06] MEDS ORDERED: LEVOTHYROXINE 88 MCG TAB PO SCH (05:00)
[2019-01-06 05:59] LABS: Glucose,Whole Blood 239 mg/dL (75-99)
[2019-01-06 06:32] LABS: Basophils % (A) 0 %; Eosinophils # (A) 0.4 k/uL (0-0.7); Eosinophils % (A) 4 %; HCT 43.9 % (34.0-46.0); HGB 14.5 gm/dL (11.4-16.0); Lymphocytes # (A) 2.4 k/uL (1.0-4.8); Lymphocytes % (A) 24 %; MCH 29.7 pg (25.0-35.0); MCV 89.9 fL (80.0-100.0); Mean Platelet Volume 7.3; Monocytes # (A) 0.7 k/uL (0-1.0); Monocytes % (A) 7 %; Neutrophils # (A) 6.3 k/uL (1.3-7.7); Neutrophils % (A) 63 %; Platelet Count 275 k/uL (150-450); RBC 4.88 m/uL (3.80-5.40); RDW 13.2 % (11.5-15.5)
[2019-01-06] MEDS ORDERED: INSULIN ASPART (NovoLOG) 100 UNIT/ML VIAL SQ SCH (07:30)
[2019-01-06 07:36] LABS: Anion Gap 8 mmol/L; Blood Urea Nitrogen 23 mg/dL (7-17); Calcium 9.7 mg/dL (8.4-10.2); Carbon Dioxide 25 mmol/L (22-30); Chloride 102 mmol/L (98-107); Cholesterol 98 mg/dL (<200); Glucose 270 mg/dL (74-99); HDL Cholesterol 47 mg/dL (40-60); LDL Cholesterol,Calculated 35 mg/dL (0-99); Potassium 4.4 mmol/L (3.5-5.1); Sodium 135 mmol/L (137-145); Triglycerides 80 mg/dL (<150)
--- NOTE | 2019-01-06 08:39 | P.CRDCN ---
History of Present Illness Consult date: 01/06/19 Requesting physician: Kole E Simeon Reason for Consult (text): Arm pain Chief complaint: Arm pain History of present illness: This is a 69-year-old female with history of diabetes, hypertension, hyperlipidemia, hypothyroidism, follows with Dr. Alfonso in the office, she was just recently in the hospital on the 12th of this month, at which time she underwent angioplasty and stenting of the mid right coronary artery as well as the second obtuse marginal branch. She presents to the hospital on this occasion with symptoms of right forearm discomfort which she described as a sharp pain, at times it goes up into the elbow region or up into the shoulder. He denies any discomfort in her chest, and her breathing overall has been stable. Patient did have a radial approach in that extremity. An ultrasound was performed which revealed a possible lipoma the forearm. Chest x-ray did not reveal any acute pulmonary process. Venous ultrasound of the right upper extremity was also performed which was negative for DVT. X-ray of the elbow was normal. Her right radial site is clean and dry and she has a good distal pulse. EKG shows normal sinus rhythm with a right bundle branch block pattern, nonspecific ST-T wave changes. Blood pressure 116/50 with a heart rate in the 70s, 95% on room air. White blood cell count 10.0, hemoglobin 14.5, platelet count 275. Sodium 135, potassium 4.4, BUN 23 and creatinine 0.6. Blood glucose on arrival 401. Magnesium 1.8. AST and ALT are normal. Initial troponin on admission 0.038, subsequent troponin 0.023, 0.016. At the time of my examination this morning, patient feels well, she denies any discomfort in her right extremity. Denies any chest discomfort. She has a follow-up appointment tomorrow with Dr. Alfonso. Past Medical History Past Medical History: Diabetes Mellitus, Eye Disorder, Hypertension, Thyroid Disorder Additional Past Medical History / Comment(s): increased fatigue with activity, increased SOB,recent post menopausal bleeding,uterus firmness,retinitis and cataracts joao eyes,varicose veins History of Any Multi-Drug Resistant Organisms: MRSA Date of last positivie culture/infection: 2009 MDRO Source:: head Past Surgical History: Cholecystectomy, Heart Catheterization With Stent, Tonsillectomy, Tubal Ligation Additional Past Surgical History / Comment(s): breast biopsy Past Anesthesia/Blood Transfusion Reactions: No Reported Reaction Additional Past Anesthesia/Blood Transfusion Reaction / Comment(s): no hx blood transfusion Date of Last Stent Placement:: 12/30/18 Past Psychological History: Depression Smoking Status: Never smoker Past Alcohol Use History: None Reported Past Drug Use History: None Reported - Past Family History Sister(s) Family Medical History: Cancer Mother Additional Family Medical History / Comment(s): pulmonary edema Brother(s) Family Medical History: Diabetes Mellitus Additional Family Medical History / Comment(s): both brothers have had stents placed Medications and Allergies Home Medications Medication Instructions Recorded Confirmed Type Aspirin 81 mg PO DAILY 12/29/18 01/05/19 History Hydrochlorothiazide [Hydrodiuril] 25 mg PO HS 12/29/18 01/05/19 History Insulin Aspart [NovoLOG] 20 units SQ W/BRKFST 12/29/18 01/05/19 History Insulin Glargine [Lantus] 50 unit SQ HS 12/29/18 01/05/19 History Levothyroxine Sodium [Synthroid] 88 mcg PO DAILY@0500 12/29/18 01/05/19 History amLODIPine BESYLATE/BENAZEPRIL 1 cap PO HS 12/29/18 01/05/19 History [Lotrel 5-10 MG] Atorvastatin Calcium [Lipitor] 40 mg PO HS #90 tablet 12/31/18 01/05/19 Rx Nitroglycerin Sl Tabs [Nitrostat] 0.4 mg SUBLINGUAL Q5M PRN #25 tab 12/31/18 Rx Clopidogrel [Plavix] 75 mg PO HS 01/05/19 01/05/19 History Allergies Allergy/AdvReac Type Severity Reaction Status Date / Time latex Allergy Itching Verified 01/05/19 07:11 Physical Exam Vitals: Vital Signs Temp Pulse Resp BP Pulse Ox 01/06/19 04:00 97.1 F L 75 18 116/56 95 01/06/19 00:00 97.0 F L 74 18 108/53 97 01/05/19 20:00 97.6 F 74 18 154/66 96 01/05/19 16:09 78 18 157/76 96 01/05/19 09:22 75 18 164/73 96 01/05/19 08:50 84 18 206/93 97 Intake and Output 02/18/19 02/19/19 02/19/19 22:59 06:59 14:59 Other: Voiding Method Toilet Toilet # Voids 1 Weight 102.6 kg PHYSICAL EXAMINATION: GENERAL: 69-year-old female in no acute distress at the time of my examination HEENT: Head is atraumatic, normocephalic. Pupils equal, round. Sclera anicteric. Conjunctiva are clear. Mucous membranes of the mouth are moist. Neck is supple. There is no elevated jugular venous pressure. No carotid bruit is heard. HEART EXAMINATION: Heart S1 S2 1 systolic ejection murmur is heard. CHEST EXAMINATION: Lungs are clear to auscultation and precussion. No chest wall tenderness is noted on palpation or with deep breathing. ABDOMEN: Soft, nontender. Bowel sounds are heard. No organomegaly noted. EXTREMITIES: 2+ peripheral pulses with no evidence of peripheral edema and no calf tenderness noted. Right radial site clean and dry, good distal pulse. NEUROLOGIC patient is awake, alert and oriented 3 . . Results 01/06/19 06:18 01/06/19 06:18 Cardiac Enzymes 01/05/19 01/05/19 Range/Units 11:15 16:13 CK-MB (CK-2) 1.0 0.8 (0.0-2.4) ng/mL Troponin I 0.023 0.016 (0.000-0.034) ng/mL Lipids 01/06/19 Range/Units 06:18 Triglycerides 80 (<150) mg/dL Cholesterol 98 (<200) mg/dL HDL Cholesterol 47 (40-60) mg/dL CBC 01/06/19 Range/Units 06:18 WBC 10.0 (3.8-10.6) k/uL RBC 4.88 (3.80-5.40) m/uL Hgb 14.5 (11.4-16.0) gm/dL Hct 43.9 (34.0-46.0) % Plt Count 275 (150-450) k/uL Comprehensive Metabolic Panel 01/06/19 Range/Units 06:18 Sodium 135 L (137-145) mmol/L Potassium 4.4 (3.5-5.1) mmol/L Chloride 102 (98-107) mmol/L Carbon Dioxide 25 (22-30) mmol/L BUN 23 H (7-17) mg/dL Creatinine 0.63 (0.52-1.04) mg/dL Glucose 270 H (74-99) mg/dL Calcium 9.7 (8.4-10.2) mg/dL Current Medications Generic Name Dose Route Start Last Admin Trade Name Freq PRN Reason Stop Dose Admin Amlodipine Besylate 5 mg 01/05/19 21:00 01/05/19 20:29 Norvasc PO 5 mg HS THANG Administration Aspirin 81 mg 01/06/19 09:00 Aspirin PO DAILY [facility] Atorvastatin Calcium 40 mg 01/05/19 21:00 01/05/19 20:30 Lipitor PO 40 mg HS THANG Administration Clopidogrel Bisulfate 75 mg 01/05/19 21:00 01/05/19 20:30 Plavix PO 75 mg HS [facility] Administration Famotidine 20 mg 01/05/19 21:00 01/05/19 20:32 Pepcid IV Not Given Q12HR [facility] Heparin Sodium (Porcine) 5,000 unit 01/05/19 21:00 01/05/19 20:31 Heparin SQ 5,000 unit Q12HR [facility] Administration Hydrochlorothiazide 25 mg 01/05/19 21:00 01/05/19 20:31 Hydrodiuril PO 25 mg HS [facility] Administration Insulin Aspart 20 unit 01/06/19 07:30 Novolog SQ W/BRKFST [facility] Insulin Detemir 50 unit 01/05/19 21:00 01/05/19 21:14 Levemir SQ 50 unit HS [facility] Administration Levothyroxine Sodium 88 mcg 01/06/19 05:00 01/06/19 06:24 Synthroid PO 88 mcg DAILY@0500 [facility] Administration Lisinopril 10 mg 01/05/19 21:00 01/05/19 20:31 Zestril PO 10 mg HS [facility] Administration Nitroglycerin 0.4 mg 01/05/19 12:05 Nitrostat SUBLINGUAL Q5M PRN Chest Pain Intake and Output 01/05/19 01/06/19 01/06/19 22:59 06:59 14:59 Other: Voiding Method Toilet Toilet # Voids 1 Weight 102.6 kg 01/06/19 06:18 01/06/19 06:18 EKG Interpretations (text) EKG shows normal sinus rhythm with a right bundle branch block pattern and nonspecific ST-T wave changes Assessment and Plan Plan: Assessment and plan #1 symptoms of a right forearm and upper arm discomfort, patient recently underwent angioplasty and stent placement of the RCA and OM on the 12th of this month supply of right radial approach. Right upper extremity ultrasound and venous duplex study negative, small lipoma noted. Elbow x-ray negative. #2 mild abnormality in troponin, could be secondary to recent PCI. EKG shows a normal sinus rhythm with a right bundle branch block pattern, no acute changes. #3 diabetes, uncontrolled #4 hypertension #5 hyperlipidemia #6 hypothyroidism Plan From cardiology's perspective, patient may be able to be discharged home today, she does have a follow-up appointment with Dr. Alfonso in the office tomorrow which she has been advised to keep. We will continue current medications including dual antiplatelet therapy , statin beta rubio and DINORAH inhibitor. Sublingual nitroglycerin as needed for chest pain. DNP note has been reviewed, I agree with a documented findings and plan of care. Patient was seen and examined. .
[2019-01-06] MEDS ORDERED: ASPIRIN 81 MG PO SCH (09:00)
[2019-01-06] MEDS ORDERED: ASPIRIN 325 MG TAB PO SCH (09:00)
[2019-01-06] MEDS: FAMOTIDINE 20 MG/2 ML VIAL IV SCH (09:13)
[2019-01-06] MEDS: HEPARIN SODIUM,PORCINE 5,000 UNIT/ML 1 ML VIAL SQ SCH (09:17)
--- NOTE | 2019-01-06 10:22 | P.GSCN ---
History of Present Illness Consult date: 01/06/19 Reason for Consult: lipoma Requesting physician: Kole E Sheet History of present illness: CHIEF COMPLAINT: Right arm lipoma HISTORY OF PRESENT ILLNESS: 69-year-old female who is admitted to the hospital for chest pain. General surgery was consulted for evaluation of lipoma of right arm. Patient currently denies pain. WBC 10.0. PAST MEDICAL HISTORY: See list. PAST SURGICAL HISTORY: See list. MEDICATIONS: See list. ALLERGIES: See list. SOCIAL HISTORY: No illicit drug use. REVIEW OF SYSTEMS: CONSTITUTIONAL: Denies fever or chills. HEENT: Denies blurred vision, vision changes, or eye pain. Denies hemoptysis ENDOCRINE: Denies heat or cold intolerance. CARDIOVASCULAR: Denies chest pain or pressure. RESPIRATORY: No shortness of breath. GASTROINTESTINAL: Denies abdominal pain. Denies nausea or vomiting. NEURO: Denies history of seizures. PSYCH: No depression or suicidal ideation HEMATOLOGIC: Denies bleeding disorders. LYMPHATIC: The patient denies any lumps and bumps around the neck. GENITOURINARY: Denies any blood in urine or increased urinary frequency. MUSCULOSKELETAL: Denies myalgias. Denies joint swelling. Denies decreased range of motion beyond patients baseline. SKIN: Denies pruitis. Denies rash. PHYSICAL EXAM: VITAL SIGNS: Currently stable. GENERAL: Well-developed in no acute distress. HEENT: No sclera icterus. Extraocular movements grossly intact. Moist buccal mucosa. Head is atraumatic, normocephalic. Hears conversational speech. No nasal drainage. NECK: Supple without lymphadenopathy. CHEST: Non-labored respirations and equal bilateral excursions. CARDIOVASCULAR: Regular rate with regular rhythm. Palpable 2+ radial pulses. ABDOMEN: Soft. Nondistended. Nontender. MUSCULOSKELETAL: No clubbing, cyanosis or edema. NEUROLOGIC: No focal or lateralizing signs. Cranial nerves II through XII grossly intact. PSYCH: Appropriate affect. Alert and oriented to person, place and time. SKIN: Well perfused. Good skin turgor. Lipoma to right arm. ASSESSMENT: 1. Lipoma of right arm PLAN: 1. No inpatient surgical intervention 2. Patient may follow up outpatient with Dr. Woodward 3. We will sign off. Please re-consult if needed. Nurse practitioner note has been reviewed by physician. Signing provider agrees with the documented findings, assessment, and plan of care. Past Medical History Past Medical History: Diabetes Mellitus, Eye Disorder, Hypertension, Thyroid Disorder Additional Past Medical History / Comment(s): increased fatigue with activity, increased SOB,recent post menopausal bleeding,uterus firmness,retinitis and cataracts joao eyes,varicose veins History of Any Multi-Drug Resistant Organisms: MRSA Year Discovered:: 2009 MDRO Source:: head Past Surgical History: Cholecystectomy, Heart Catheterization With Stent, Tonsillectomy, Tubal Ligation Additional Past Surgical History / Comment(s): breast biopsy Past Anesthesia/Blood Transfusion Reactions: No Reported Reaction Additional Past Anesthesia/Blood Transfusion Reaction / Comm: no hx blood transfusion Date of Last Stent Placement:: 12/30/18 Past Psychological History: Depression Smoking Status: Never smoker Past Alcohol Use History: None Reported Past Drug Use History: None Reported - Past Family History Sister(s) Family Medical History: Cancer Mother Additional Family Medical History / Comment(s): pulmonary edema Brother(s) Family Medical History: Diabetes Mellitus Additional Family Medical History / Comment(s): both brothers have had stents placed Medications and Allergies Home Medications Medication Instructions Recorded Confirmed Type Aspirin 81 mg PO DAILY 12/29/18 01/05/19 History Hydrochlorothiazide [Hydrodiuril] 25 mg PO HS 12/29/18 01/05/19 History Insulin Aspart [NovoLOG] 20 units SQ W/BRKFST 12/29/18 01/05/19 History Insulin Glargine [Lantus] 50 unit SQ HS 12/29/18 01/05/19 History Levothyroxine Sodium [Synthroid] 88 mcg PO DAILY@0500 12/29/18 01/05/19 History amLODIPine BESYLATE/BENAZEPRIL 1 cap PO HS 12/29/18 01/05/19 History [Lotrel 5-10 MG] Atorvastatin Calcium [Lipitor] 40 mg PO HS #90 tablet 12/31/18 01/05/19 Rx Nitroglycerin Sl Tabs [Nitrostat] 0.4 mg SUBLINGUAL Q5M PRN #25 tab 12/31/18 Rx Clopidogrel [Plavix] 75 mg PO HS 01/05/19 01/05/19 History Allergies Allergy/AdvReac Type Severity Reaction Status Date / Time latex Allergy Itching Verified 01/05/19 07:11 Surgical - Exam Vital Signs Temp Pulse Resp BP Pulse Ox 98.2 F 80 18 147/83 96 01/05/19 04:15 01/05/19 04:15 01/05/19 04:15 01/05/19 04:15 01/05/19 04:15 Results - Labs 01/06/19 06:18 01/06/19 06:18 Abnormal Lab Results - Last 24 Hours (Table) 01/05/19 01/05/19 01/06/19 Range/Units 14:09 21:16 05:54 Sodium (137-145) mmol/L BUN (7-17) mg/dL Glucose (74-99) mg/dL POC Glucose (mg/dL) 285 H 343 H 239 H (75-99) mg/dL 01/06/19 Range/Units 06:18 Sodium 135 L (137-145) mmol/L BUN 23 H (7-17) mg/dL Glucose 270 H (74-99) mg/dL POC Glucose (mg/dL) (75-99) mg/dL Diabetes panel 01/06/19 Range/Units 06:18 Sodium 135 L (137-145) mmol/L Potassium 4.4 (3.5-5.1) mmol/L Chloride 102 (98-107) mmol/L Carbon Dioxide 25 (22-30) mmol/L BUN 23 H (7-17) mg/dL Creatinine 0.63 (0.52-1.04) mg/dL Glucose 270 H (74-99) mg/dL Calcium 9.7 (8.4-10.2) mg/dL Triglycerides 80 (<150) mg/dL HDL Cholesterol 47 (40-60) mg/dL Calcium panel 01/06/19 Range/Units 06:18 Calcium 9.7 (8.4-10.2) mg/dL Pituitary panel 01/06/19 Range/Units 06:18 Sodium 135 L (137-145) mmol/L Potassium 4.4 (3.5-5.1) mmol/L Chloride 102 (98-107) mmol/L Carbon Dioxide 25 (22-30) mmol/L BUN 23 H (7-17) mg/dL Creatinine 0.63 (0.52-1.04) mg/dL Glucose 270 H (74-99) mg/dL Calcium 9.7 (8.4-10.2) mg/dL Adrenal panel 01/06/19 Range/Units 06:18 Sodium 135 L (137-145) mmol/L Potassium 4.4 (3.5-5.1) mmol/L Chloride 102 (98-107) mmol/L Carbon Dioxide 25 (22-30) mmol/L BUN 23 H (7-17) mg/dL Creatinine 0.63 (0.52-1.04) mg/dL Glucose 270 H (74-99) mg/dL Calcium 9.7 (8.4-10.2) mg/dL
[2019-01-06 11:39] LABS: Glucose,Whole Blood 209 mg/dL (75-99)
[2019-01-06 14:12] VITALS: BP 141/74; PULSE 87; TEMP 97.4
[2019-01-06] MEDS ORDERED: FAMOTIDINE 20 MG TAB PO SCH (21:00)
--- NOTE | 2019-01-09 12:48 | P.DS ---
Providers Date of admission: 01/05/19 05:58 Attending physician: Kole Hendrix MD Consults: 01/05/19 05:48 Consult Physician Urgent Consulting Provider: [facility] Consult Reason/Comments: chest pain 6 days s/p cath with stent trop 0.038 Do you want consulting provider notified?: Yes, Notify in am 01/05/19 22:25 Consult Physician Routine Consulting Provider: Beni Woodward Consult Reason/Comments: right forearm lipoma Do you want consulting provider notified?: Yes Primary care physician: Cesar Thomas Hospital Course: Dx Right forearm pain, could be cardiac versus other high troponin, rule out acute coronary syndrome cat scratch disease ruled out Diabetes mellitus Essential hypertension Hyperlipidemia. Hypothyroidism hospital course This is a pleasant 68 years old female with past medical history of diabetes mellitus, hypertension, hyperthyroidism coronary artery disease status post cardiac cath recently. Presents because of right forearm pain of 6 days' duration that is gradually getting worse about 7/10 in severity, work up did showed only lipoma in her forearm. she was treated symptomatically and she was resolved , and on the day of discharge she had no pain , no swelling on her forearm . and she could move her right upper ext freely without difficulty. she is been evaluated by cardiology and cleared her for discharge. surgeon also evaluated her with no surgical intervention indicated while in the hospital and was instructed with surgery clinic outpt . pt agrees with this plan . pt was scrached by her own cat recently and there is a scratch on her right finger, however with monitoring there was no s/s of inflammation and no cellulitis and no loss of function Pt was instructed about the problems and management plan and Pt verbalized understanding and acceptance Pt is found stable and can be discharged to the community but needs follow up as outpt. pt and at bed side agrees with appointment made for her and state will follwo up pt agrees with appointments and their timing and stated he will follow up Discharge exam Gen.: Patient alert awake and oriented X 3, NOT IN DISTRESS CVS: s1-s2, RRR, no murmur CHEST:bilateral CTA, no wheezing or crepitation Abdomen: Soft, no tenderness, no distention, positive bowel sounds Extremities: No leg edema or induration time spent : more than 35 min Patient Condition at Discharge: Stable Plan - Discharge Summary Discharge Rx Participant: No New Discharge Prescriptions: No Action Levothyroxine Sodium [Synthroid] 88 mcg PO DAILY@0500 Hydrochlorothiazide [Hydrodiuril] 25 mg PO HS amLODIPine BESYLATE/BENAZEPRIL [Lotrel 5-10 MG] 1 cap PO HS Insulin Glargine [Lantus] 50 unit SQ HS Aspirin 81 mg PO DAILY Insulin Aspart [NovoLOG] 20 units SQ W/BRKFST Nitroglycerin Sl Tabs [Nitrostat] 0.4 mg SUBLINGUAL Q5M PRN #25 tab PRN Reason: Chest Pain Atorvastatin Calcium [Lipitor] 40 mg PO HS #90 tablet Clopidogrel [Plavix] 75 mg PO HS Discharge Medication List Aspirin 81 mg PO DAILY 12/29/18 [History] Hydrochlorothiazide [Hydrodiuril] 25 mg PO HS 12/29/18 [History] Insulin Aspart [NovoLOG] 20 units SQ W/BRKFST 12/29/18 [History] Insulin Glargine [Lantus] 50 unit SQ HS 12/29/18 [History] Levothyroxine Sodium [Synthroid] 88 mcg PO DAILY@0500 12/29/18 [History] amLODIPine BESYLATE/BENAZEPRIL [Lotrel 5-10 MG] 1 cap PO HS 12/29/18 [History] Atorvastatin Calcium [Lipitor] 40 mg PO HS #90 tablet 12/31/18 [Rx] Nitroglycerin Sl Tabs [Nitrostat] 0.4 mg SUBLINGUAL Q5M PRN #25 tab 12/31/18 [Rx ] Clopidogrel [Plavix] 75 mg PO HS 01/05/19 [History] Follow up Appointment(s)/Referral(s): Hunter Alfonso MD [STAFF PHYSICIAN] - 01/07/19 (keep scheduled appointment for tomorrow) Cesar Thomas DO [Primary Care Provider] - 01/14/19 10:20 am (Saturday) Beni Woodward MD [STAFF PHYSICIAN] - 01/15/19 2:45 pm () Patient Instructions/Handouts: Chest Pain (DC), Heart Healthy Diet (DC), Lipoma (GEN) Activity/Diet/Wound Care/Special Instructions: cardiac diet activity is limited till you see your doctor Discharge Disposition: HOME SELF-CARE
== END 2019-01-06 16:36 | disposition home or self-care (01) ==
LOC: EC 04:07 → 1SOBS 05:58 → 3SCARD 08:31
PROVIDERS: ADMIT Internal Medicine; ATTEND Internal Medicine
DX: R07.89 Other chest pain (principal); E03.9 Hypothyroidism, unspecified; E11.9 Type 2 diabetes mellitus without complications; E78.5 Hyperlipidemia, unspecified; I10 Essential (primary) hypertension; H26.9 Unspecified cataract; D17.21 Benign lipomatous neoplasm of skin and subcutaneous tissue of right arm; R77.8 Other specified abnormalities of plasma proteins; I83.90 Asymptomatic varicose veins of unspecified lower extremity; F32.9 Major depressive disorder, single episode, unspecified; I25.10 Atherosclerotic heart disease of native coronary artery without angina pectoris; I45.10 Unspecified right bundle-branch block; I45.2 Bifascicular block; Z79.02 Long term (current) use of antithrombotics/antiplatelets; Z79.4 Long term (current) use of insulin; Z79.82 Long term (current) use of aspirin; Z79.890 Hormone replacement therapy; Z86.14 Personal history of Methicillin resistant Staphylococcus aureus infection; Z98.61 Coronary angioplasty status; Z79.899 Other long term (current) drug therapy; Z83.3 Family history of diabetes mellitus; Z98.51 Tubal ligation status; Z91.040 Latex allergy status; Z95.5 Presence of coronary angioplasty implant and graft; Z90.49 Acquired absence of other specified parts of digestive tract
CPT/HCPCS: 96372 ×2; 99285; 36415; 93005; 97165; 83880; 80061; 80053; 80048; 82550; 82553; 83735; 84484; 85025 ×2; 85610; 85730; 73080; 71046; 93971; 76882; G0378 ×3; J1644 ×2

== ENCOUNTER → 2019-04-03 | Outpatient (CLI) | payer MEDICARE ==
[2019-04-03 18:54] LABS: Albumin 3.8 g/dL (3.80-4.90); Albumin/Globulin Ratio 1.52 (1.60-3.17); Anion Gap 4.9 mmol/L (4.00-12.00); Calcium 9.3 mg/dL (8.7-10.3); Carbon Dioxide 28.1 mmol/L (21.6-31.8); Globulin 2.5 g/dL (1.6-3.3); LDL Cholesterol,Calculated 51.2 mg/dL (0.0-131.0); Potassium 4.4 mmol/L (3.5-5.5); Total Bilirubin 0.4 mg/dL (0.2-1.2); Total Protein 6.3 g/dL (6.2-8.2); VLDL Calculation 11.8 mg/dL (5.00-40.00)
[2019-04-03 18:58] LABS: T4, Free (Free Thyroxine) 1.1 ng/dL (0.80-1.80)
[2019-04-03 19:55] LABS: Hemoglobin A1C 8.9 % (4.0-6.0)
== END | disposition home or self-care (01) ==
LOC: LABWHC1 11:15
PROVIDERS: ATTEND Internal Medicine Interventional Cardiology
DX: E78.2 Mixed hyperlipidemia (principal); E11.9 Type 2 diabetes mellitus without complications; E03.9 Hypothyroidism, unspecified
CPT/HCPCS: 36415; 80053; 80061; 83036; 84439; 84443

== ENCOUNTER 2020-12-14 09:38 | Day surgery (SDC) | payer MEDICARE ==
[2020-12-13 09:08] VITALS: BMI 39.4
[~2020-12-14 09:38] MED LIST changes: -ALPRAZolam 0.25 MG TAB PO PRN; -ALPRAZolam 0.5 MG TAB PO PRN; -ASPIRIN 325 MG TAB PO STA; -ATORVASTATIN 80 MG TAB PO STA; +LACTATED RINGERS 1,000 ML IV SCH; +LIDOCAINE 1% (10MG/ML) FOR IV START INTRADERMA PRN; -NITROGLYCERIN SL TABS 0.4 MG TAB SUBLINGUAL PRN; -SODIUM CHLORIDE 0.9% 1,000 ML in EMPTY BAG 1 BAG IV ONE
[2020-12-14 10:40] LABS: Glucose,Whole Blood 264 mg/dL (75-99)
[2020-12-14 10:43] VITALS: TEMP 98
[2020-12-14] MEDS ORDERED: PROPOFOL 10 MG/ML 20 ML VIAL IV ONE (10:58)
--- NOTE | 2020-12-14 11:16 | P.PCN ---
Date of Procedure: 12/14/20 Procedure(s) Performed: BRIEF HISTORY: Patient is a 70-year-old pleasant white female scheduled for an elective colonoscopy as a part of evaluation of positive cologuard. PROCEDURE PERFORMED: Colonoscopy with snare polypectomy PREOPERATIVE DIAGNOSIS: Positive cologuard. IV sedation per Anesthesia. PROCEDURE: After informed consent was obtained, the patient, was brought into the endoscopy unit. IV sedation was administered by Anesthesia under continuous monitoring. Digital rectal examination was normal. Initially the Olympus CF-160 flexible video colonoscope was then inserted in the rectum, gradually advanced into the cecum without any difficulty. Careful examination was performed as the scope was gradually being withdrawn. Ileocecal valve and the appendiceal orifice were visualized and appeared normal. Prep was excellent. The base of the cecum there was a 7 mm polyp removed by snare polypectomy. In the ascending colon there was a 3 mm and 5 mm sessile polyps removed by snare polypectomy. Mucosa of the cecum, ascending colon, transverse colon, descending colon appeared normal. In the sigmoid: There was a 2 cm pedunculated polyp removed by snare polypectomy. Rest of the, sigmoid colon, and rectum appeared normal. Retroflexion was performed in the rectum and no lesions were seen. The patient tolerated the procedure well. IMPRESSION: 7 mm cecal polyp status post polypectomy 3 mm and 5 mm ascending colon polyp status post polypectomy 2 cm pedunculated sigmoid polyp status post polypectomy RECOMMENDATIONS: Findings of this examination were discussed with the patient as well as a family. He was advised to follow with the biopsy results. If the biopsy reveals adenoma she can have a repeat colonoscopy in 3 years
[2020-12-14 11:32] LABS: Glucose,Whole Blood 258 mg/dL (75-99)
[2020-12-14 11:49] VITALS: BP 136/79; PULSE 66; RESP 18
== END 2020-12-14 12:11 | disposition home or self-care (01) ==
LOC: ORWHC2ENDO 09:38
PROVIDERS: ATTEND Internal Medicine Gastroenterology
DX: D12.0 Benign neoplasm of cecum (principal); D12.2 Benign neoplasm of ascending colon; D12.5 Benign neoplasm of sigmoid colon; Z79.82 Long term (current) use of aspirin; Z79.4 Long term (current) use of insulin; Z79.899 Other long term (current) drug therapy; E11.9 Type 2 diabetes mellitus without complications; I10 Essential (primary) hypertension; I25.10 Atherosclerotic heart disease of native coronary artery without angina pectoris; Z95.5 Presence of coronary angioplasty implant and graft; E07.9 Disorder of thyroid, unspecified; Z79.890 Hormone replacement therapy; Z91.040 Latex allergy status
CPT/HCPCS: 88305; 45385; J2704

== ENCOUNTER → 2023-10-14 | Outpatient (CLI) | payer MEDICARE ==
--- NOTE | 2023-10-19 15:37 | MR ---
EXAMINATION TYPE: MR foot LT wo/w con DATE OF EXAM: 10/14/2023 COMPARISON: None HISTORY: Left foot/lower leg pain and swelling. Left foot mass TECHNIQUE: Multiplanar, multisequence images of the left foot were acquired without and with contrast . FINDINGS: BONES/CARTILAGE/JOINT: Bone marrow signal is normal. Articular cartilage is normal. No joint effusion. LIGAMENTS: Spring ligament is normal. Lisfranc ligament normal. Normal plantar plates. TENDONS: Flexor tendons are normal. Extensor tendons are normal. SOFT TISSUES: At the medial inframalleolar ankle, there is a pedunculated exophytic soft tissue mass measuring 3.7 x 2.1 x 3.7 cm (AP x TV x CC). The mass is avidly enhancing and demonstrates a few small areas of int ernal calcification. There is no evident draining or feeding vessel. Diffuse subcutaneous edema circumferentially about the ankle and dorsal forefoot. No loculated fluid collection. No bursal distention. Small adventitial bursal formation third intermetatarsal webspace. Sinus tarsi is normal. Plantar fascia is normal. Neurovascular structures are normal. IMPRESSION: 1. Nonspecific pedunculated exophytic enhancing mass medial inframalleolar ankle. Differential diagno sis is broad; however, vascular and/or lymphatic malformation etiologies are favored. 2. Diffuse subcutaneous edema about the ankle and dorsal foot.
== END | disposition home or self-care (01) ==
LOC: RADMRIMAIN 18:24
PROVIDERS: ATTEND Surgery
DX: R22.42 Localized swelling, mass and lump, left lower limb (principal)
CPT/HCPCS: 73720; A9585

== ENCOUNTER → 2023-10-22 | Outpatient (CLI) | payer MEDICARE ==
--- NOTE | 2023-10-23 07:19 | US ---
EXAMINATION TYPE: US transvaginal DATE OF EXAM: 10/22/2023 COMPARISON: 10/11/18 CLINICAL INDICATION: Female, 73 years old with history of N95.0 POSTMENOPAUSAL BLEEDING; postmenopaus e bleeding x 3 weeks. . Hx of tubal ligation TECHNIQUE: Transvaginal (TV). Date of LMP: 30 years ago EXAM MEASUREMENTS: Uterus: 9.1 x 6.3 x 5.4 cm Endometrial Stripe: 2.8 cm Right Ovary: Not seen Left Ovary: Not seen 1. Uterus: Anteverted wnl 2. Endometrium: Enlarged for age. Fluid seen inside measuring 1.4 x 1.3 x 0.7cm 3. Right Ovary: Not seen due to atrophy 4. Left Ovary: Not seen due to atrophy 5. Bilateral Adnexa: wnl 6. Posterior cul-de-sac: wnl IMPRESSION: 1. Fluid collection within the endometrial canal. Endometrium is somewhat thickened. Additional [place] p is recommended.
== END | disposition home or self-care (01) ==
LOC: RADUSWWP 15:38
PROVIDERS: ATTEND Family Medicine
DX: N95.0 Postmenopausal bleeding (principal); Z78.0 Asymptomatic menopausal state; Z98.51 Tubal ligation status
CPT/HCPCS: 76830

== ENCOUNTER 2023-11-29 09:42 | Day surgery (SDC) | payer MEDICARE ==
[2023-11-25 16:00] VITALS: BMI 40.3
[~2023-11-29 09:42] MED LIST changes: +DEXAMETHASONE SOD PHOSPHATE 4 MG/ML 1 ML VIAL IV ONE; +HYDROmorphone 0.5 MG/0.5 ML SYRINGE IVP PRN; -LIDOCAINE 1% (10MG/ML) FOR IV START INTRADERMA PRN; +MIDAZOLAM 2 MG/2 ML VIAL IV PRN; +ONDANSETRON 4 MG/2 ML VIAL IVP ONE; +Pre Op ABX Message 1 EACH MISC MISCELLANE ONE
[2023-11-29] MEDS ORDERED: DEXAMETHASONE SOD PHOSPHATE 4 MG/ML 1 ML VIAL IVP ONE (10:22)
[2023-11-29] MEDS ORDERED: ONDANSETRON 4 MG/2 ML VIAL IVP ONE (10:22)
[2023-11-29 10:30] LABS: Glucose,Whole Blood 289 mg/dL (70-110)
[2023-11-29 10:35] LABS: Basophils % (A) 0 %; Eosinophils # (A) 0.3 k/uL (0-0.7); Eosinophils % (A) 2 %; HGB 13.8 gm/dL (11.4-16.0); Lymphocytes # (A) 2.8 k/uL (1.0-4.8); Lymphocytes % (A) 25 %; MCHC 32.8 g/dL (31.0-37.0); MCV 91.4 fL (80.0-100.0); Mean Platelet Volume 9.5; Monocytes # (A) 0.6 k/uL (0-1.0); Monocytes % (A) 6 %; Neutrophils # (A) 7.2 k/uL (1.3-7.7); Neutrophils % (A) 65 %; Platelet Count 338 k/uL (150-450); RBC 4.59 m/uL (3.80-5.40); RDW 13.2 % (11.5-15.5)
[2023-11-29] MEDS ORDERED: fentaNYL (PF) 50 MCG/1 ML VIAL IVP ONE ×2 (10:42→10:50)
[2023-11-29] MEDS ORDERED: MIDAZOLAM 2 MG/2 ML VIAL IVP ONE (10:42)
[2023-11-29 10:49] LABS: ALT 25 U/L (4-34); AST 24 U/L (14-36); African American GFR (CKD) 83 (>60 ml/min/1.73 sqM); Albumin 3.8 g/dL (3.5-5.0); Alkaline Phosphatase 122 U/L (38-126); Anion Gap 11 mmol/L; Blood Urea Nitrogen 27 mg/dL (7-17); Calcium 9.7 mg/dL (8.4-10.2); Carbon Dioxide 24 mmol/L (22-30); Chloride 101 mmol/L (98-107); Glucose 302 mg/dL (74-99); Non-African American GFR(CKD) 72 (>60 ml/min/1.73 sqM); Potassium 4.6 mmol/L (3.5-5.1); Sodium 136 mmol/L (137-145); Total Bilirubin 0.4 mg/dL (0.2-1.3); Total Protein 7.2 g/dL (6.3-8.2)
[2023-11-29] MEDS ORDERED: INSULIN ASPART (NovoLOG) 100 UNIT/ML VIAL SQ ONE (10:53)
--- NOTE | 2023-11-29 11:30 | P.ANPRN ---
Procedure Note - Anesthesia - Nerve Block Performed Left Popliteal Single Time Out Performed: Yes (1040) Date of Procedure: 11/29/23 Procedure Start Time: : Procedure Stop Time: :52 Location of Patient: PreOp Indication: Acute Post-Operative Pain, Requested by Surgeon Sedation Type: Sedate with meaningful contact maintained Preparation: Sterile Prep, Sterile Dressing Position: Right Lateral Catheter: None Needle Types: Pajunk Needle Gauge: 21 Ultrasound used to visualize needle placement: Yes Ultrasound used to observe medication spread: Yes Injectate: 0.5% Ropivacaine (see comment for volume) (15 mL of 0.5% ropivacaine mixed with 10 ML of preservative-free normal saline.) Blood Aspirated: No Pain Paresthesia on Injection Noted: No Resistance on Injection: Normal Image Stored and Saved: Yes Events: Uneventful and Well Tolerated Left Adductor Canal Single Time Out Performed: Yes (1040) Date of Procedure: 11/29/23 Procedure Start Time: Procedure Stop Time: :52 Location of Patient: PreOp Indication: Acute Post-Operative Pain, Requested by Surgeon Sedation Type: Sedate with meaningful contact maintained Preparation: Sterile Prep, Sterile Dressing Position: Supine Catheter: None Needle Types: Pajunk Needle Gauge: 21 Ultrasound used to visualize needle placement: Yes Ultrasound used to observe medication spread: Yes Injectate: 0.5% Ropivacaine (see comment for volume) (15 mL of 0.5% ropivacaine mixed with 5 mL of preservative-free normal saline) Blood Aspirated: No Pain Paresthesia on Injection Noted: No Resistance on Injection: Normal Image Stored and Saved: Yes Events: Uneventful and Well Tolerated
--- NOTE | 2023-11-29 11:47 | P.GSHP ---
History of Present Illness H&P Date: 11/29/23 Chief Complaint: left foot mass 73-year-old female with history of left foot mass on the medial aspect that she states has been there for over 2 years presents today for excision of the mass. She states the mass has increased in size since last visit 2 months ago and has been draining. She denies any fevers, chills, chest pain or shortness of breath. - Review of Systems All systems: negative (What is mentioned in the HPI or past medical history) Past Medical History Past Medical History: Diabetes Mellitus, Eye Disorder, Hyperlipidemia, Hypertension, Thyroid Disorder Additional Past Medical History / Comment(s): "Left foot wound for at least 7 months, progressively gotten worse, now it's draining and has foul odor and very painful", spouse states message left at Dr Vega's office today. Recent post menopausal bleeding, states "has consult with cryptographic vulnerability analyst and reduced yhyroid pill by half and bleeding has resolved". Blind, retinitis and glaucoma bilateral eyes. States "had left leg varicose vein, but it disappeared." Joint pain. Insomnia. History of Any Multi-Drug Resistant Organisms: MRSA Date of last positivie culture/infection: 2009 MDRO Source:: head Past Surgical History: Breast Surgery, Cholecystectomy, Heart Catheterization With Stent, Tonsillectomy, Tubal Ligation Additional Past Surgical History / Comment(s): Breast biopsy, cataracts removed, 3 cardiac stents, right eye shunt, lymph node removed from back. Past Anesthesia/Blood Transfusion Reactions: Postoperative Nausea & Vomiting (P ONV) Additional Past Anesthesia/Blood Transfusion Reaction / Comment(s): No hx blood transfusion. Date of Last Stent Placement:: 12/30/18 Past Psychological History: Anxiety, Depression Smoking Status: Never smoker Past Alcohol Use History: None Reported Past Drug Use History: None Reported - Past Family History Sister(s) Family Medical History: Cancer Additional Family Medical History / Comment(s): Breast cancer. Mother Additional Family Medical History / Comment(s): Pulmonary edema. Brother(s) Family Medical History: Diabetes Mellitus Additional Family Medical History / Comment(s): Both brothers have had stents placed. Medications and Allergies Home Medications Medication Instructions Recorded Confirmed Type Insulin Aspart [NovoLOG] 24 units SQ HS 12/29/18 11/29/23 History Insulin Glargine [Lantus Vial] 60 unit SQ QAM 12/29/18 11/29/23 History Acetaminophen Tab [Tylenol] 500 - 1,000 mg PO Q4-6H PRN 11/25/23 11/29/23 History Atorvastatin [Lipitor] 20 mg PO QAM 11/25/23 11/29/23 History Folic Acid (? Dose) 1 tab PO DAILY 11/25/23 11/29/23 History Furosemide [Lasix] 20 mg PO QAM 11/25/23 11/29/23 History Levothyroxine Sodium 0.5 tab PO QAM 11/25/23 11/29/23 History Losartan [Cozaar] 50 mg PO QAM 11/25/23 11/29/23 History Turmeric (Unknown Dose) 1 tab PO DAILY 11/25/23 11/29/23 History amLODIPine BESYLATE/BENAZEPRIL 1 cap PO QAM 11/25/23 11/29/23 History [amLODIPine BESYLATE/BENAZEPRIL 5-20 mg] Allergies Allergy/AdvReac Type Severity Reaction Status Date / Time latex Allergy Itching Verified 11/29/23 10:13 Surgical - Exam Vital Signs Temp Pulse Resp BP Pulse Ox 97.6 F 87 16 167/72 97 11/29/23 10:05 11/29/23 10:05 11/29/23 10:05 11/29/23 10:05 11/29/23 10:05 - General well developed, well nourished, no distress - Eyes PERRL - ENT normal pinna, normal nares - Neck no masses - Respiratory normal expansion - Cardiovascular Rhythm: regular - Abdomen Abdomen: soft, non tender - Psychiatric oriented to time, oriented to person, oriented to place, speech is normal Large mass medial aspect of the left ankle fungating Results - Labs 11/29/23 10:16 11/29/23 10:16 Abnormal Lab Results - Last 24 Hours (Table) 11/29/23 11/29/23 11/29/23 Range/Units 10:14 10:16 10:16 WBC 11.0 H (3.8-10.6) k/uL Sodium 136 L (137-145) mmol/L BUN 27 H (7-17) mg/dL Glucose 302 H (74-99) mg/dL POC Glucose (mg/dL) 289 H (70-110) mg/dL Diabetes panel 11/29/23 Range/Units 10:16 Sodium 136 L (137-145) mmol/L Potassium 4.6 (3.5-5.1) mmol/L Chloride 101 (98-107) mmol/L Carbon Dioxide 24 (22-30) mmol/L BUN 27 H (7-17) mg/dL Creatinine 0.82 (0.52-1.04) mg/dL Glucose 302 H (74-99) mg/dL Calcium 9.7 (8.4-10.2) mg/dL AST 24 (14-36) U/L ALT 25 (4-34) U/L Alkaline Phosphatase 122 (38-126) U/L Total Protein 7.2 (6.3-8.2) g/dL Albumin 3.8 (3.5-5.0) g/dL Calcium panel 11/29/23 Range/Units 10:16 Calcium 9.7 (8.4-10.2) mg/dL Albumin 3.8 (3.5-5.0) g/dL Pituitary panel 11/29/23 Range/Units 10:16 Sodium 136 L (137-145) mmol/L Potassium 4.6 (3.5-5.1) mmol/L Chloride 101 (98-107) mmol/L Carbon Dioxide 24 (22-30) mmol/L BUN 27 H (7-17) mg/dL Creatinine 0.82 (0.52-1.04) mg/dL Glucose 302 H (74-99) mg/dL Calcium 9.7 (8.4-10.2) mg/dL Adrenal panel 11/29/23 Range/Units 10:16 Sodium 136 L (137-145) mmol/L Potassium 4.6 (3.5-5.1) mmol/L Chloride 101 (98-107) mmol/L Carbon Dioxide 24 (22-30) mmol/L BUN 27 H (7-17) mg/dL Creatinine 0.82 (0.52-1.04) mg/dL Glucose 302 H (74-99) mg/dL Calcium 9.7 (8.4-10.2) mg/dL Total Bilirubin 0.4 (0.2-1.3) mg/dL AST 24 (14-36) U/L ALT 25 (4-34) U/L Alkaline Phosphatase 122 (38-126) U/L Total Protein 7.2 (6.3-8.2) g/dL Albumin 3.8 (3.5-5.0) g/dL Assessment and Plan Assessment: Fungating left foot mass Plan: To the OR for excision of mass. All questions answered and consent in the chart.
[2023-11-29] MEDS ORDERED: PROPOFOL 10 MG/ML 20 ML VIAL IV ONE (12:01)
[2023-11-29] MEDS ORDERED: PHENYLEPHRINE-0.9% NACL SYG 1,000 MCG/10 ML SYRINGE ONE (12:01)
[2023-11-29] MEDS ORDERED: ePHEDrine 50 MG/ML 1 ML VIAL ONE (12:01)
[2023-11-29] MEDS ORDERED: LIDOCAINE 1% INJ 10MG/ML (20 ML MDV) ONE (12:01)
[2023-11-29] MEDS ORDERED: SUCCINYLCHOLINE CHLORIDE 200 MG/10 ML VIAL IV ONE (12:01)
[2023-11-29] MEDS ORDERED: ROPIVACAINE 5 MG/ML 30 ML VIAL ONE (12:01)
[2023-11-29] MEDS ORDERED: fentaNYL (PF) 50 MCG/ML 2 ML AMP ONE (12:01)
[2023-11-29] MEDS ORDERED: ceFAZolin 1,000 MG VIAL ONE (12:01)
[2023-11-29] MEDS ORDERED: SODIUM CHLORIDE 0.9% (PF) 10 ML VIAL ONE (12:01)
[2023-11-29] MEDS ORDERED: SODIUM CHLORIDE 0.9% 100 ML BAG ONE (12:01)
[2023-11-29] MEDS ORDERED: SODIUM CHLORIDE 0.9% 50 ML with ceFAZolin 2,000 MG IV ONE ×2 (12:06)
[2023-11-29 13:36] LABS: Glucose,Whole Blood 253 mg/dL (70-110)
--- NOTE | 2023-11-29 13:48 | P.OP ---
Date of Procedure: 11/29/23 Preoperative Diagnosis: Left medial ankle/foot mass Postoperative Diagnosis: Same Procedure(s) Performed: Excision of left medial ankle mass Anesthesia: regional Surgeon: Jesús Vega Estimated Blood Loss (ml): 20 Pathology: other (Left medial ankle mass measuring 4 x 3 x 3 cm) Condition: stable Disposition: PACU Indications for Procedure: 73-year-old female with history of left medial ankle mass that patient states that has been increasing in size over the last several weeks. She states the mass has been there for over 2 years and originally was thought to be a varicose vein or enlargement of the vein. She presents today for excision of the mass. Description of Procedure: After written and informed consent was obtained the patient and all risks benefits and complications were described the patient is brought to the operative suite and laid in a supine position. The area of the left foot was prepped and draped in usual sterile fashion after appropriate anesthetic was performed per the anesthesiologist. A timeout was performed normal fashion and antibiotics were administered prior to incision. An elliptical incision was then created at the borders of the fungating mass with a 15 blade scalpel and dissection was carried down through the skin into the subcutaneous tissue and fat. The mass was then dissected free in a circumferential manner and removed. It did not seem that the mass extended past the dermis into the fatty tissue. Once the mass was removed the area was irrigated with antibiotic solution. Hemostasis was assured and the wound site was then prepared for closure. Subcutaneous dissection was carried at the superior and inferior flaps to allow for better tension free approximation. 2-0 nylon suture was then utilized and a vertical mattress fashion for closure. The skin was then cleansed and the area was dressed with Adaptic, 4 x 4, Kerlix and Sudhir wrap. Plan - Discharge Summary Discharge Rx Participant: No New Discharge Prescriptions: No Action Insulin Glargine [Lantus Vial] 60 unit SQ QAM Insulin Aspart [NovoLOG] 24 units SQ HS Levothyroxine Sodium 0.5 tab PO QAM Folic Acid (? Dose) 1 tab PO DAILY amLODIPine BESYLATE/BENAZEPRIL [amLODIPine BESYLATE/BENAZEPRIL 5-20 mg] 1 cap PO QAM Turmeric (Unknown Dose) 1 tab PO DAILY Acetaminophen Tab [Tylenol] 500 - 1,000 mg PO Q4-6H PRN PRN Reason: Pain Losartan [Cozaar] 50 mg PO QAM Furosemide [Lasix] 20 mg PO QAM Atorvastatin [Lipitor] 20 mg PO QAM Discharge Medication List Insulin Aspart [NovoLOG] 24 units SQ HS 12/29/18 [History] Insulin Glargine [Lantus Vial] 60 unit SQ QAM 12/29/18 [History] Acetaminophen Tab [Tylenol] 500 - 1,000 mg PO Q4-6H PRN 11/25/23 [History] Atorvastatin [Lipitor] 20 mg PO QAM 11/25/23 [History] Folic Acid (? Dose) 1 tab PO DAILY 11/25/23 [History] Furosemide [Lasix] 20 mg PO QAM 11/25/23 [History] Levothyroxine Sodium 0.5 tab PO QAM 11/25/23 [History] Losartan [Cozaar] 50 mg PO QAM 11/25/23 [History] Turmeric (Unknown Dose) 1 tab PO DAILY 11/25/23 [History] amLODIPine BESYLATE/BENAZEPRIL [amLODIPine BESYLATE/BENAZEPRIL 5-20 mg] 1 cap PO QAM 11/25/23 [History] Follow up Appointment(s)/Referral(s): Jesús Vega DO [STAFF PHYSICIAN] - 2 Weeks Activity/Diet/Wound Care/Special Instructions: Patient is instructed to obtain offloading to the left foot for [address] pressure on it for transfers but should not be ambulating on the foot. Discharge Disposition: HOME SELF-CARE
[2023-11-29 13:52] VITALS: TEMP 97.3
[2023-11-29 14:17] VITALS: RESP 16
[2023-11-29 14:30] LABS: Glucose,Whole Blood 265 mg/dL (70-110)
[2023-11-29 14:41] VITALS: BP 129/83
[2023-11-29 15:06] VITALS: PULSE 90
== END 2023-11-29 15:51 | disposition home or self-care (01) ==
LOC: OR 09:42
PROVIDERS: ATTEND Surgery
DX: R22.42 Localized swelling, mass and lump, left lower limb (principal); I10 Essential (primary) hypertension; H57.9 Unspecified disorder of eye and adnexa; E78.5 Hyperlipidemia, unspecified; E07.9 Disorder of thyroid, unspecified; G89.18 Other acute postprocedural pain; Z90.49 Acquired absence of other specified parts of digestive tract; Z95.5 Presence of coronary angioplasty implant and graft; E11.9 Type 2 diabetes mellitus without complications; F41.9 Anxiety disorder, unspecified; F32.A Depression, unspecified; Z80.3 Family history of malignant neoplasm of breast; Z83.3 Family history of diabetes mellitus; Z79.4 Long term (current) use of insulin; Z79.899 Other long term (current) drug therapy; Z79.890 Hormone replacement therapy; Z91.040 Latex allergy status
CPT/HCPCS: 64447; 64445; 80053; 85025; 88307; 27634; J2250; J0330; J2405; J0690; J2001; J3010 ×2; J2795; J2704; J2371

== ENCOUNTER 2024-02-04 13:15 | Emergency (ER) | payer MEDICARE ==
--- NOTE | 2024-02-04 14:01 | ED ---
General Adult HPI - General Chief complaint: Extremity Injury, Lower Stated complaint: Left Leg Pain/Swollen-Post Surgery Time Seen by Provider: 02/04/24 13:35 Source: patient, family, RN notes reviewed, old records reviewed Mode of arrival: ambulatory Limitations: no limitations - History of Present Illness Initial comments: This is a 74-year-old female who presents to the emergency department complaining of swelling in her left leg and increased tenderness. Patient states she has had a wound to the medial aspect of her left heel for quite a while she is post to follow-up with wound care center on . Patient states that leg is getting more more swollen and she is worried about a clot and she is also worried about infection. Patient denies any fever or chills. Patient states the leg has been more painful over the last few days and the heel remains about the same. Patient also has noticed increased redness of the anterior leg - Related Data Home Medications Medication Instructions Recorded Confirmed Insulin Aspart [NovoLOG] 24 units SQ HS 12/29/18 11/29/23 Insulin Glargine [Lantus Vial] 60 unit SQ QAM 12/29/18 11/29/23 Acetaminophen Tab [Tylenol] 500 - 1,000 mg PO Q4-6H PRN 11/25/23 11/29/23 Atorvastatin [Lipitor] 20 mg PO QAM 11/25/23 11/29/23 Folic Acid (? Dose) 1 tab PO DAILY 11/25/23 11/29/23 Furosemide [Lasix] 20 mg PO QAM 11/25/23 11/29/23 Levothyroxine Sodium 0.5 tab PO QAM 11/25/23 11/29/23 Losartan [Cozaar] 50 mg PO QAM 11/25/23 11/29/23 Turmeric (Unknown Dose) 1 tab PO DAILY 11/25/23 11/29/23 amLODIPine BESYLATE/BENAZEPRIL 1 cap PO QAM 11/25/23 11/29/23 [amLODIPine BESYLATE/BENAZEPRIL 5-20 mg] Allergies Allergy/AdvReac Type Severity Reaction Status Date / Time latex Allergy Itching Verified 02/04/24 13:26 Review of Systems ROS Statement: Those systems with pertinent positive or pertinent negative responses have been documented in the HPI. ROS Other: All systems not noted in ROS Statement are negative. Past Medical History Past Medical History: Diabetes Mellitus, Eye Disorder, Hyperlipidemia, Hypertension, Thyroid Disorder Additional Past Medical History / Comment(s): "Left foot wound for at least 7 months, progressively gotten worse, now it's draining and has foul odor and very painful", spouse states message left at Dr Vega's office today. 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 Blind, retinitis and glaucoma bilateral eyes. States "had left leg varicose vein, but it disappeared." Joint pain. Insomnia. History of Any Multi-Drug Resistant Organisms: MRSA Date of last positivie culture/infection: 2009 MDRO Source:: head Past Surgical History: Breast Surgery, Cholecystectomy, Heart Catheterization With Stent, Tonsillectomy, Tubal Ligation Additional Past Surgical History / Comment(s): Breast biopsy, cataracts removed, 3 cardiac stents, right eye shunt, lymph node removed from back. Past Anesthesia/Blood Transfusion Reactions: Postoperative Nausea & Vomiting (PONV) Additional Past Anesthesia/Blood Transfusion Reaction / Comment(s): No hx blood transfusion. Date of Last Stent Placement:: 12/30/18 Past Psychological History: Anxiety, Depression Smoking Status: Never smoker Past Alcohol Use History: None Reported Past Drug Use History: None Reported - Past Family History Sister(s) Family Medical History: Cancer Additional Family Medical History / Comment(s): Breast cancer. Mother Additional Family Medical History / Comment(s): Pulmonary edema. Brother(s) Family Medical History: Diabetes Mellitus Additional Family Medical History / Comment(s): Both brothers have had stents placed. General Exam - General Exam Comments Initial Comments: GENERAL: Patient is well-developed and well-nourished. Patient is nontoxic and well- hydrated and is in mild distress. ENT: Neck is soft and supple. No significant lymphadenopathy is noted. Oropharynx is clear. Moist mucous membranes. Neck has full range of motion without e liciting any pain. EYES: The sclera were anicteric and conjunctiva were pink and moist. Extraocular movements were intact and pupils were equal round and reactive to light. Eyelids were unremarkable. PULMONARY: Unlabored respirations. Good breath sounds bilaterally. No audible rales rhonchi or wheezing was noted. CARDIOVASCULAR: There is a regular rate and rhythm without any murmurs gallops or rubs. ABDOMEN: Soft and nontender with normal bowel sounds. SKIN: Skin is clear with no lesions or rashes and otherwise unremarkable. NEUROLOGIC: Patient is alert and oriented x3. Cranial nerves II through XII are grossly intact. Motor and sensory are also intact. Normal speech, volume and content. Symmetrical smile. MUSCULOSKELETAL: Left leg is swollen tender in the calf also tender anteriorly and there is some erythema to the anterior aspect of the leg. Patient has a open wound on the medial aspect of the left heel that measures about 4 cm x 8 cm. It is very malodorous LYMPHATICS: No significant lymphadenopathy is noted PSYCHIATRIC: Normal psychiatric evaluation. Limitations: no limitations Course Vital Signs 02/04/24 02/04/24 02/04/24 13:22 14:30 16:03 Temperature 98.6 F 98.1 F Pulse Rate 98 78 70 Respiratory 18 18 18 Rate Blood Pressure 147/78 145/79 151/65 O2 Sat by Pulse 96 98 97 Oximetry Medical Decision Making - Medical Decision Making EKG is interpreted by myself but EKG shows a sinus rhythm at 78 bpm parable 159 QRS is 140 QT interval is 420 QTc is 454. Patient's EKG shows a right bundle branch block Was pt. sent in by a medical professional or institution (, [facility]SHAL, EDUCATIONAL TECHNOLOGY SPECIALIST, urgent care, hospital, or long term...) When possible be specific @ -No Did you speak to anyone other than the patient for history (EMS, parent, family, police, friend...)? What history was obtained from this source @ - gave quite a bit of history Did you review nursing and triage notes (agree or disagree)? Why? @ -I reviewed and agree with nursing and triage notes Were old charts reviewed (outside hosp., previous admission, EMS record, old EKG, old radiological studies, urgent care reports/EKG's, long term records)? Report findings @ -I reviewed prior charts and prior lab work on this patient Differential Diagnosis (chest pain, altered mental status, abdominal pain women, abdominal pain men, vaginal bleeding, weakness, fever, dyspnea, syncope, headache, dizziness, GI bleed, back pain, seizure, CVA, palpatations, mental health, musculoskeletal)? @ -Cellulitis, peripheral edema, DVT, this is not an all-inclusive list EKG interpreted by me (3pts min.). @ -As above X-rays interpreted by me (1pt min.). @ -X-ray of the foot shows no acute abnormality CT interpreted by me (1pt min.). @ -None done U/S interpreted by me (1pt. min.). @ -Ultrasound showed no DVT What testing was considered but not performed or refused? (CT, X-rays, U/S, labs)? Why? @ -None What meds were considered but not given or refused? Why? @ -None Did you discuss the management of the patient with other professionals (prof maldonado i.e. , PA, EDUCATIONAL TECHNOLOGY SPECIALIST, lab, RT, psych nurse, executive secretary social welfare, drapery sewer hand, teacher, founder and chief technical officer, business case analyst)? Give summary @ -No Was smoking cessation discussed for >3mins.? @ -No Was critical care preformed (if so, how long)? @ -No Were there social determinants of health that impacted care today? How? (Homelessness, low income, unemployed, alcoholism, drug addiction, transportation, low edu. Level, literacy, decrease access to med. care, prison, rehab)? @ -No Was there de-escalation of care discussed even if they declined (Discuss DNR or withdrawal of care, Hospice)? DNR status @ -No What co-morbidities impacted this encounter? (DM, HTN, Smoking, COPD, CAD, Cancer, CVA, ARF, Chemo, Hep., AIDS, mental health diagnosis, sleep apnea, morbid obesity)? @ -None Was patient admitted / discharged? Hospital course, mention meds given and route, prescriptions, significant lab abnormalities, going to OR and other pertinent info. @ -Patient's blood work and radiological studies were normal. Patient will follow-up with the wound clinic for the heel ulcer on . Patient did receive some pain medication in the emergency department was feeling considerably better Undiagnosed new problem with uncertain prognosis? @ -No Drug Therapy requiring intensive monitoring for toxicity (Heparin, Nitro, Insulin, Cardizem)? @ -No Were any procedures done? @ -No Diagnosis/symptom? @ -Edema left leg Acute, or Chronic, or Acute on Chronic? @ -Acute on chronic Uncomplicated (without systemic symptoms) or Complicated (systemic symptoms)? @ -Complicated Side effects of treatment? @ -No Exacerbation, Progression, or Severe Exacerbation? @ -No Poses a threat to life or bodily function? How? (Chest pain, [place], [place], pneumonia, PE, COPD, DKA, ARF, appy, cholecystitis, CVA, Diverticulitis, Homicidal, S uicidal, threat to staff... and all critical care pts) @ -No Diagnosis/symptom? @ -Left heel ulcer chronic Acute, or Chronic, or Acute on Chronic? @ -Chronic Uncomplicated (without systemic symptoms) or Complicated (systemic symptoms)? @ -Complicated Side effects of treatment? @ -None Exacerbation, Progression, or Severe Exacerbation] @ -No Poses a threat to life or bodily function? @ -No - Lab Data Result diagrams: 02/04/24 14:11 02/04/24 14:11 Lab Results 02/04/24 02/04/24 02/04/24 Range/Units 14:11 14:11 14:11 WBC 9.6 (3.8-10.6) k/uL RBC 4.43 (3.80-5.40) m/uL Hgb 13.1 (11.4-16.0) gm/dL Hct 40.4 (34.0-46.0) % MCV 91.1 (80.0-100.0) fL MCH 29.5 (25.0-35.0) pg MCHC 32.3 (31.0-37.0) g/dL RDW 12.7 (11.5-15.5) % Plt Count 292 (150-450) k/uL MPV 8.6 Neutrophils % 59 % Lymphocytes % 29 % Monocytes % 7 % Eosinophils % 3 % Basophils % 0 % Neutrophils # 5.7 (1.3-7.7) k/uL Lymphocytes # 2.8 (1.0-4.8) k/uL Monocytes # 0.7 (0-1.0) k/uL Eosinophils # 0.3 (0-0.7) k/uL Basophils # 0.0 (0-0.2) k/uL PT 9.9 L (10.0-12.5) sec INR 0.9 (<1.2) APTT 22.8 (22.0-30.0) sec Sodium 136 L (137-145) mmol/L Potassium 4.3 (3.5-5.1) mmol/L Chloride 104 (98-107) mmol/L Carbon Dioxide 24 (22-30) mmol/L Anion Gap 8 mmol/L BUN 18 H (7-17) mg/dL Creatinine 0.81 (0.52-1.04) mg/dL Est GFR (CKD-EPI)AfAm 85 (>60 ml/min/1.73 sqM) Est GFR (CKD-EPI)NonAf 73 (>60 ml/min/1.73 sqM) Glucose 282 H (74-99) mg/dL Plasma Lactic Acid Skyler (0.7-2.0) mmol/L Calcium 9.1 (8.4-10.2) mg/dL Total Bilirubin 0.4 (0.2-1.3) mg/dL AST 28 (14-36) U/L ALT 31 (4-34) U/L Alkaline Phosphatase 138 H (38-126) U/L Total Protein 7.1 (6.3-8.2) g/dL Albumin 3.5 (3.5-5.0) g/dL 02/04/24 Range/Units 14:11 WBC (3.8-10.6) k/uL RBC (3.80-5.40) m/uL Hgb (11.4-16.0) gm/dL Hct (34.0-46.0) % MCV (80.0-100.0) fL MCH (25.0-35.0) pg MCHC (31.0-37.0) g/dL RDW (11.5-15.5) % Plt Count (150-450) k/uL MPV Neutrophils % % Lymphocytes % % Monocytes % % Eosinophils % % Basophils % % Neutrophils # (1.3-7.7) k/uL Lymphocytes # (1.0-4.8) k/uL Monocytes # (0-1.0) k/uL Eosinophils # (0-0.7) k/uL Basophils # (0-0.2) k/uL PT (10.0-12.5) sec INR (<1.2) APTT (22.0-30.0) sec Sodium (137-145) mmol/L Potassium (3.5-5.1) mmol/L Chloride (98-107) mmol/L Carbon Dioxide (22-30) mmol/L Anion Gap mmol/L BUN (7-17) mg/dL Creatinine (0.52-1.04) mg/dL Est GFR (CKD-EPI)AfAm (>60 ml/min/1.73 sqM) Est GFR (CKD-EPI)NonAf (>60 ml/min/1.73 sqM) Glucose (74-99) mg/dL Plasma Lactic Acid Skyler 1.9 (0.7-2.0) mmol/L Calcium (8.4-10.2) mg/dL Total Bilirubin (0.2-1.3) mg/dL AST (14-36) U/L ALT (4-34) U/L Alkaline Phosphatase (38-126) U/L Total Protein (6.3-8.2) g/dL Albumin (3.5-5.0) g/dL Disposition Clinical Impression: Heel ulceration, Leg edema Disposition: HOME SELF-CARE Condition: Good Instructions (If sedation given, give patient instructions): Leg Edema (ED) Additional Instructions: Patient should keep foot elevated is much as possible and follow-up with the wound center on Is patient prescribed a controlled substance at d/c from ED?: No Referrals: Cesar Thomas DO [Primary Care Provider] - 1-2 days Time of Disposition: 17:20
[2024-02-04 14:20] LABS: Basophils % (A) 0 %; Eosinophils # (A) 0.3 k/uL (0-0.7); Eosinophils % (A) 3 %; HCT 40.4 % (34.0-46.0); HGB 13.1 gm/dL (11.4-16.0); Lymphocytes # (A) 2.8 k/uL (1.0-4.8); Lymphocytes % (A) 29 %; MCH 29.5 pg (25.0-35.0); MCHC 32.3 g/dL (31.0-37.0); MCV 91.1 fL (80.0-100.0); Mean Platelet Volume 8.6; Monocytes # (A) 0.7 k/uL (0-1.0); Monocytes % (A) 7 %; Neutrophils # (A) 5.7 k/uL (1.3-7.7); Neutrophils % (A) 59 %; Platelet Count 292 k/uL (150-450); RBC 4.43 m/uL (3.80-5.40); RDW 12.7 % (11.5-15.5); WBC 9.6 k/uL (3.8-10.6)
[2024-02-04 14:31] LABS: INR 0.9 (<1.2); Partial Thromboplastin Time 22.8 sec (22.0-30.0); Prothrombin Time 9.9 sec (10.0-12.5)
[2024-02-04 14:36] LABS: ALT 31 U/L (4-34); AST 28 U/L (14-36); African American GFR (CKD) 85 (>60 ml/min/1.73 sqM); Albumin 3.5 g/dL (3.5-5.0); Alkaline Phosphatase 138 U/L (38-126); Anion Gap 8 mmol/L; Blood Urea Nitrogen 18 mg/dL (7-17); Calcium 9.1 mg/dL (8.4-10.2); Carbon Dioxide 24 mmol/L (22-30); Chloride 104 mmol/L (98-107); Glucose 282 mg/dL (74-99); Non-African American GFR(CKD) 73 (>60 ml/min/1.73 sqM); Potassium 4.3 mmol/L (3.5-5.1); Sodium 136 mmol/L (137-145); Total Bilirubin 0.4 mg/dL (0.2-1.3); Total Protein 7.1 g/dL (6.3-8.2)
--- NOTE | 2024-02-04 15:36 | XR ---
EXAMINATION TYPE: XR foot complete LT DATE OF EXAM: 02/04/2024 COMPARISON: NONE HISTORY: Redness and swelling TECHNIQUE: Three views are submitted. FINDINGS: Diffuse severe osteopenia. There is diffuse soft tissue edema. Calcaneal spurs are seen. Vascular alpa cifications. There is no acute fracture or dislocation. Joint spaces are preserved. IMPRESSION: 1. Diffuse soft tissue edema with no definite destructive change or acute fracture.
--- NOTE | 2024-02-04 16:26 | US ---
EXAMINATION TYPE: US venous doppler duplex LE LT DATE OF EXAM: 02/04/2024 1:59 PM COMPARISON: NONE CLINICAL INDICATION: Female, 74 years old with history of DVT; Left foot surgery in November; ADELINAE julia ling x 1 week SIDE PERFORMED: Left TECHNIQUE: The lower extremity deep venous system is examined utilizing real time linear array sonog nestor with graded compression, doppler sonography and color-flow sonography. VESSELS IMAGED: Common Femoral Vein Deep Femoral Vein Greater Saphenous Vein * Femoral Vein Popliteal Vein Small Saphenous Vein * Proximal Calf Veins (* superficial vessels) Right Leg: NA Left Leg: Negative for DVT IMPRESSION: Grayscale, color doppler, spectral doppler imaging performed of the deep veins of the le ft lower extremity. There is normal flow, compressibility, vascular waveforms. Negative for DVT lef t lower extremity.
[2024-02-04] MEDS: HYDROmorphone 0.5 MG/0.5 ML SYRINGE IVP STA (17:41)
[2024-02-04 17:42] VITALS: BP 142/58; PULSE 87; RESP 20; TEMP 98
== END 2024-02-04 17:41 | disposition home or self-care (01) ==
LOC: EC 13:15
DX: E11.621 Type 2 diabetes mellitus with foot ulcer (principal); L97.429 Non-pressure chronic ulcer of left heel and midfoot with unspecified severity; I45.10 Unspecified right bundle-branch block; Z79.4 Long term (current) use of insulin; Z91.040 Latex allergy status
CPT/HCPCS: 36415; 80053; 83605; 85025; 85610; 85730; 87040; 93005; 99285

== ENCOUNTER 2024-12-13 21:13 | Emergency (ER) | payer MEDICARE ==
--- NOTE | 2024-12-13 21:43 | ED ---
General Adult HPI - General Chief complaint: Arrhythmia/Palpitations Stated complaint: Heart palpitations Time Seen by Provider: 12/13/24 21:20 Source: patient, RN notes reviewed, old records reviewed Mode of arrival: ambulatory Limitations: no limitations - History of Present Illness Initial comments: 74 yo female presenting with palpitation, dyspnea, and weight gain with lower extremity edema. History of heart failure and CAD. Patient has also had a cough productive of sputum. Patient reports subjective fever and chills. No central chest pain. - Related Data Home Medications Medication Instructions Recorded Confirmed Insulin Aspart [NovoLOG] 24 units SQ HS 12/29/18 11/29/23 Insulin Glargine (Lantus) [Lantus 60 unit SQ QAM 12/29/18 11/29/23 Vial] Acetaminophen Tab [Tylenol] 500 - 1,000 mg PO Q4-6H PRN 11/25/23 11/29/23 Atorvastatin [Lipitor] 20 mg PO QAM 11/25/23 11/29/23 Folic Acid (? Dose) 1 tab PO DAILY 11/25/23 11/29/23 Furosemide [Lasix] 20 mg PO QAM 11/25/23 11/29/23 Levothyroxine Sodium 0.5 tab PO QAM 11/25/23 11/29/23 Losartan [Cozaar] 50 mg PO QAM 11/25/23 11/29/23 Turmeric (Unknown Dose) 1 tab PO DAILY 11/25/23 11/29/23 amLODIPine BESYLATE/BENAZEPRIL 1 cap PO QAM 11/25/23 11/29/23 [amLODIPine BESYLATE/BENAZEPRIL 5-20 mg] Previous Rx's Medication Instructions Recorded Oseltamivir [Tamiflu] 75 mg PO Q12HR 5 Days #10 cap 12/13/24 Allergies Allergy/AdvReac Type Severity Reaction Status Date / Time latex Allergy Itching Verified 12/13/24 21:14 Review of Systems ROS Statement: Those systems with pertinent positive or pertinent negative responses have been documented in the HPI. ROS Other: All systems not noted in ROS Statement are negative. Past Medical History Past Medical History: Diabetes Mellitus, Eye Disorder, Hyperlipidemia, Hypertension, Thyroid Disorder Additional Past Medical History / Comment(s): "Left foot wound for at least 7 months, progressively gotten worse, now it's draining and has foul odor and very painful", spouse states message left at Dr Vega's office today. Recent post menopausal bleeding, states "has consult with ultrasonic cleaner and reduced yhyroid pill by half and bleeding has resolved". Blind, retinitis and glaucoma bilateral eyes. States "had left leg varicose vein, but it disappeared." Joint pain. Insomnia. History of Any Multi-Drug Resistant Organisms: MRSA Date of last positivie culture/infection: 2009 MDRO Source:: head Past Surgical History: Breast Surgery, Cholecystectomy, Heart Catheterization With Stent, Tonsillectomy, Tubal Ligation Additional Past Surgical History / Comment(s): Breast biopsy, cataracts removed, 3 cardiac stents, right eye shunt, lymph node removed from back, L foot Past Anesthesia/Blood Transfusion Reactions: Postoperative Nausea & Vomiting (PONV) Additional Past Anesthesia/Blood Transfusion Reaction / Comment(s): No hx blood transfusion. Date of Last Stent Placement:: 12/30/18 Past Psychological History: Anxiety, Depression Smoking Status: Never smoker Past Alcohol Use History: None Reported Past Drug Use History: None Reported - Past Family History Sister(s) Family Medical History: Cancer Additional Family Medical History / Comment(s): Breast cancer. Mother Additional Family Medical History / Comment(s): Pulmonary edema. Brother(s) Family Medical History: Diabetes Mellitus Additional Family Medical History / Comment(s): Both brothers have had stents placed. General Exam Limitations: no limitations General appearance: alert, in no apparent distress Head exam: Present: atraumatic, normocephalic ENT exam: Present: normal exam Neck exam: Present: normal inspection. Absent: tenderness Respiratory exam: Present: normal lung sounds bilaterally. Absent: respiratory distress, wheezes, rales, rhonchi Cardiovascular Exam: Present: regular rate, normal rhythm GI/Abdominal exam: Present: soft, distended. Absent: tenderness, guarding Extremities exam: Present: pedal edema Neurological exam: Present: alert, oriented X3, CN II-XII intact. Absent: motor sensory deficit Psychiatric exam: Present: normal affect, normal mood Skin exam: Present: warm, dry, intact Course Vital Signs 12/13/24 12/13/24 21:14 22:48 Temperature 99.8 F H Pulse Rate 96 Respiratory 18 22 Rate Blood Pressure 141/70 O2 Sat by Pulse 96 Oximetry Medical Decision Making - Medical Decision Making Was pt. sent in by a medical professional or institution (MARSHAL Ray, [employer] OPERATOR, urgent care, hospital, or shelter...) When possible be specific @ -[No] Did you speak to anyone other than the patient for history (EMS, parent, family, police, friend...)? What history was obtained from this source @Patient's and daughter who are at bedside. Patient has had mild cough, dyspnea Did you review nursing and triage notes (agree or disagree)? Why? @ -[I reviewed and agree with nursing and triage notes] Were old charts reviewed (outside hosp., previous admission, EMS record, old EKG, old radiological studies, urgent care reports/EKG's, shelter records)? Report findings @ -[No old charts were reviewed] Differential Dyspnea: Coronary syndrome, arrhythmia, tamponade, asthma, COPD, pulmonary embolism, pneumonia, pneumothorax, pulmonary effusion, anaphylaxis, diabetic ketoacidosis, flailed chest, pulmonary contusion, diaphragmatic rupture, anemia, neuromuscular, this is not meant to be an all-inclusive list. @ -[not applicable] EKG interpreted by me (3pts min.). @ -Sinus rhythm, right bundle branch block, left anterior fascicular block, rate of 90, IA interval 146, QRS duration [address] segment elevation. X-rays interpreted by me (1pt min.). @ -Chest x-ray is clear, no consolidated pneumonia, no pneumothorax CT interpreted by me (1pt min.). @ -[None done] U/S interpreted by me (1pt. min.). @ -[None done] What testing was considered but not performed or refused? (CT, X-rays, U/S, labs)? Why? @ -[None] What meds were considered but not given or refused? Why? @ -[None] Did you discuss the management of the patient with other professionals (mario maier i.e. MARSHAL Ray, [employer] OPERATOR, lab, RT, psych nurse, director of social services, educational aide, teacher, police officer crime prevention, case maker)? Give summary @ -[No] Was smoking cessation discussed for >3mins.? @ -[No] Was critical care preformed (if so, how long)? @ -[No] Were there social determinants of health that impacted care today? How? (Homelessness, low income, unemployed, alcoholism, drug addiction, transportation, low edu. Level, literacy, decrease access to med. care, prison, rehab)? @ -[No] Was there de-escalation of care discussed even if they declined (Discuss DNR or withdrawal of care, Hospice)? DNR status @ -[No] What co-morbidities impacted this encounter? (DM, HTN, Smoking, COPD, CAD, Cancer, CVA, ARF, Chemo, Hep., AIDS, mental health diagnosis, sleep apnea, morbid obesity)? @ -CAD, CHF Was patient admitted / discharged? Hospital course, mention meds given and route, prescriptions, significant lab abnormalities, going to OR and other pertinent info. @ -[74-year-old female with cough, mild dyspnea. Vital signs stable upon arrival. No central chest pain. Patient has EKG showing sinus rhythm without ST segment changes. Chest x-ray is clear. She has normal CBC, normal CMP with the exception of elevated blood glucose, negative troponin, negative BNP. Her viral panel is positive for influenza which is the cause of her symptoms. Patient will be started on Tamiflu, stable for discharge. Return parameters discussed at length with patient and family. Undiagnosed new problem with uncertain prognosis? @ -[No] Drug Therapy requiring intensive monitoring for toxicity (Heparin, Nitro, Insu hema, Cardizem)? @ -[No] Were any procedures done? @ -[No] Diagnosis/symptom? @ -Influenza Acute, or Chronic, or Acute on Chronic? @ -Acute Uncomplicated (without systemic symptoms) or Complicated (systemic symptoms)? @ -[default] Side effects of treatment? @ -[No] Exacerbation, Progression, or Severe Exacerbation? @ -[No] Poses a threat to life or bodily function? How? (Chest pain, [place], [place], pneumonia, PE, COPD, DKA, ARF, appy, cholecystitis, CVA, Diverticulitis, Homicidal, Suicidal, threat to staff... and all critical care pts) @ -Low risk at this time - Lab Data Result diagrams: 12/13/24 22:03 12/13/24 22:03 Lab Results 12/13/24 12/13/24 12/13/24 Range/Units 22:03 22:03 22:03 WBC 10.6 (3.8-10.6) k/uL RBC 4.65 (3.80-5.40) m/uL Hgb 13.6 (11.4-16.0) gm/dL Hct 40.7 (34.0-46.0) % MCV 87.6 (80.0-100.0) fL MCH 29.2 (25.0-35.0) pg MCHC 33.3 (31.0-37.0) g/dL RDW 13.2 (11.5-15.5) % Plt Count 264 (150-450) k/uL MPV 8.6 Neutrophils % 86 % Lymphocytes % 5 % Monocytes % 6 % Eosinophils % 2 % Basophils % 0 % Neutrophils # 9.1 H (1.3-7.7) k/uL Lymphocytes # 0.5 L (1.0-4.8) k/uL Monocytes # 0.6 (0-1.0) k/uL Eosinophils # 0.2 (0-0.7) k/uL Basophils # 0.0 (0-0.2) k/uL PT 10.7 (10.0-12.5) sec INR 1.0 (<1.2) APTT 22.5 (22.0-30.0) sec Sodium (137-145) mmol/L Potassium (3.5-5.1) mmol/L Chloride (98-107) mmol/L Carbon Dioxide (22-30) mmol/L Anion Gap mmol/L BUN (7-17) mg/dL Creatinine (0.52-1.04) mg/dL Est GFR (CKD-EPI)AfAm (>60 ml/min/1.73 sqM) Est GFR (CKD-EPI)NonAf (>60 ml/min/1.73 sqM) Glucose (74-99) mg/dL Calcium (8.4-10.2) mg/dL Magnesium (1.6-2.3) mg/dL Total Bilirubin (0.2-1.3) mg/dL AST (14-36) U/L ALT (4-34) U/L Alkaline Phosphatase (38-126) U/L Troponin I (0.000-0.034) ng/mL NT-Pro-B Natriuret Pep pg/mL Total Protein (6.3-8.2) g/dL Albumin (3.5-5.0) g/dL Influenza Type A (PCR) Detected A (Not Detectd) Influenza Type B (PCR) Not Detected (Not Detectd) RSV (PCR) Not Detected (Not Detectd) SARS-CoV-2 (PCR) Not Detected (Not Detectd) 12/13/24 12/13/24 Range/Units 22:03 22:03 WBC (3.8-10.6) k/uL RBC (3.80-5.40) m/uL Hgb (11.4-16.0) gm/dL Hct (34.0-46.0) % MCV (80.0-100.0) fL MCH (25.0-35.0) pg MCHC (31.0-37.0) g/dL RDW (11.5-15.5) % Plt Count (150-450) k/uL MPV Neutrophils % % Lymphocytes % % Monocytes % % Eosinophils % % Basophils % % Neutrophils # (1.3-7.7) k/uL Lymphocytes # (1.0-4.8) k/uL Monocytes # (0-1.0) k/uL Eosinophils # (0-0.7) k/uL Basophils # (0-0.2) k/uL PT (10.0-12.5) sec INR (<1.2) APTT (22.0-30.0) sec Sodium 132 L (137-145) mmol/L Potassium 4.3 (3.5-5.1) mmol/L Chloride 99 (98-107) mmol/L Carbon Dioxide 22 (22-30) mmol/L Anion Gap 11 mmol/L BUN 19 H (7-17) mg/dL Creatinine 0.75 (0.52-1.04) mg/dL Est GFR (CKD-EPI)AfAm >90 (>60 ml/min/1.73 sqM) Est GFR (CKD-EPI)NonAf 80 (>60 ml/min/1.73 sqM) Glucose 397 H (74-99) mg/dL Calcium 9.5 (8.4-10.2) mg/dL Magnesium 1.6 (1.6-2.3) mg/dL Total Bilirubin 0.6 (0.2-1.3) mg/dL AST 36 (14-36) U/L ALT 29 (4-34) U/L Alkaline Phosphatase 127 H (38-126) U/L Troponin I <0.012 (0.000-0.034) ng/mL NT-Pro-B Natriuret Pep 160 pg/mL Total Protein 6.8 (6.3-8.2) g/dL Albumin 3.6 (3.5-5.0) g/dL Influenza Type A (PCR) (Not Detectd) Influenza Type B (PCR) (Not Detectd) RSV (PCR) (Not Detectd) SARS-CoV-2 (PCR) (Not Detectd) Disposition Clinical Impression: Influenza A Disposition: HOME SELF-CARE Condition: Fair Instructions (If sedation given, give patient instructions): Influenza (ED) Prescriptions: Oseltamivir [Tamiflu] 75 mg PO Q12HR 5 Days #10 cap Is patient prescribed a controlled substance at d/c from ED?: No Referrals: Cesar Thomas DO [Primary Care Provider] - 1-2 days Time of Disposition: 23:06
[2024-12-13 22:15] LABS: Basophils % (A) 0 %; Eosinophils # (A) 0.2 k/uL (0-0.7); Eosinophils % (A) 2 %; HCT 40.7 % (34.0-46.0); HGB 13.6 gm/dL (11.4-16.0); Lymphocytes # (A) 0.5 k/uL (1.0-4.8); Lymphocytes % (A) 5 %; MCH 29.2 pg (25.0-35.0); MCHC 33.3 g/dL (31.0-37.0); MCV 87.6 fL (80.0-100.0); Mean Platelet Volume 8.6; Monocytes # (A) 0.6 k/uL (0-1.0); Monocytes % (A) 6 %; Neutrophils # (A) 9.1 k/uL (1.3-7.7); Neutrophils % (A) 86 %; Platelet Count 264 k/uL (150-450); RBC 4.65 m/uL (3.80-5.40); RDW 13.2 % (11.5-15.5); WBC 10.6 k/uL (3.8-10.6)
[2024-12-13 22:33] LABS: Partial Thromboplastin Time 22.5 sec (22.0-30.0); Prothrombin Time 10.7 sec (10.0-12.5)
[2024-12-13 22:39] LABS: NT-Pro-B-Type Natriuretic Pept 160 pg/mL
[2024-12-13 22:50] LABS: ALT 29 U/L (4-34); AST 36 U/L (14-36); African American GFR (CKD) >90 (>60 ml/min/1.73 sqM); Albumin 3.6 g/dL (3.5-5.0); Alkaline Phosphatase 127 U/L (38-126); Anion Gap 11 mmol/L; Blood Urea Nitrogen 19 mg/dL (7-17); Calcium 9.5 mg/dL (8.4-10.2); Carbon Dioxide 22 mmol/L (22-30); Chloride 99 mmol/L (98-107); Glucose 397 mg/dL (74-99); Magnesium 1.6 mg/dL (1.6-2.3); Non-African American GFR(CKD) 80 (>60 ml/min/1.73 sqM); Potassium 4.3 mmol/L (3.5-5.1); Sodium 132 mmol/L (137-145); Total Bilirubin 0.6 mg/dL (0.2-1.3); Total Protein 6.8 g/dL (6.3-8.2)
[2024-12-13 23:00] LABS: Influenza A Detected (Not Detectd); Influenza B Not Detected (Not Detectd); RSV Not Detected (Not Detectd)
--- NOTE | 2024-12-13 23:19 | XR ---
EXAM: XR Chest, 2 Views CLINICAL HISTORY: ITS.REASON XR Reason: difficulty breathing TECHNIQUE: Frontal and lateral views of the chest. COMPARISON: 01/05/2019. FINDINGS: Lungs: Unremarkable. No consolidative changes. Pleural space: Unremarkable. No pneumothorax. No pleural effusions. Heart: Heart is top normal in size. No cardiomegaly. Mediastinum: Unremarkable. Normal mediastinal contour. Bones/joints: Osseous structures and soft tissues are unremarkable. No acute fracture. Vasculature: Atherosclerotic disease. IMPRESSION: 1. Atherosclerotic disease. 2. No consolidative changes or pleural effusions, unchanged.
[2024-12-13 23:44] VITALS: BP 149/72; PULSE 93; RESP 18; TEMP 99.6
== END 2024-12-13 23:30 | disposition home or self-care (01) ==
LOC: EC 21:13
DX: J10.1 Influenza due to other identified influenza virus with other respiratory manifestations (principal); I11.0 Hypertensive heart disease with heart failure; I25.10 Atherosclerotic heart disease of native coronary artery without angina pectoris; Z91.040 Latex allergy status
CPT/HCPCS: 36415; 71046; 80053; 83735; 83880; 84484; 85025; 85610; 85730; 87636; 93005; 99285